=== PATIENT | female | born 1955 | race Caucasian/White ===

== ENCOUNTER → 2019-01-25 12:32 | Outpatient (CLI) | payer BC, SELFPAY ==
--- NOTE | 2019-01-25 12:49 | XR_ITS ---
EXAM: XR cervical spine 3V HISTORY: ITS.REASON: CERVICALGIE, FOR LEAD PLACEMENT ID PRIOR TO BATTERY CHANGE ORDERING PHYSICIAN: Referral Provider, PATIENT AGE: 63 years COMPARISON: None FINDINGS: The tip of the spinal cord stimulator device is projected over the posterior aspect of the vertebral canal at the C6 level. Also noted is orthopedic hardware involving the medial right clavicle. There are calcific densities in the mid neck area bilaterally. Alignment, bone density and vertebral body heights are normal. There is moderate loss of disc space height with small interspersed at C5-6 and C6-7. Posterior elements are intact and there is no prevertebral soft tissue prominence. Impression: No acute process. C5-6 and C6-7 chronic degenerative disc disease. Calcified plaques at the carotid bifurcation area bilaterally. Spinal cord stimulator as described above and evidence of surgery of the medial right clavicle.
== END ==
DX: M54.2 Cervicalgia (principal)
CPT/HCPCS: 72040

== ENCOUNTER 2019-10-15 13:35 | Observation (INO) | payer BC, SELFPAY ==
[2019-10-15] VITALS (23 sets, daily range): BP systolic 132–184; BP diastolic 61–113; PULSE 78–112; RESP 16–20; TEMP 36.4–36.9; O2SAT 92–100; BMI 34.4; BMI 35.1
--- NOTE | 2019-10-15 | IR_ITS ---
APPROVED REPORT Patient Location: [facility] Labourer: ABDIRAHMAN Cross RT (R) PROCEDURES Left heart catheterization Left ventriculogram Selective coronary angiogram Drug-eluting stent deployment to the proximal LAD INDICATION Acute coronary syndrome/unstable angina, Coronary artery disease Informed consent was obtained prior to the procedure. COMPLICATIONS none Estimated Blood Loss: less than 10 mls TECHNIQUE One percent lidocaine used to anesthetize the right anterior aspect of the wrist. The right radial artery was accessed via the Seldinger technique. A 6 Cameroonian sheath was placed in the right radial artery. 2.5 mg of verapamil, 800 mcg of nitroglycerin, 1mg Lidocaine and 5000 U Heparin were given through the arterial sheath. The trap catheter and 6 Cameroonian JL 3 guide catheter were used to perform left heart catheterization left ventriculogram and selective coronary angiogram. At the end of the diagnostic angiogram the JL 3 guide catheter was left in the left main artery and additional heparin was given given producing a therapeutic ACT. A BMW wire was used to traverse the stenosis in the LAD and a 3 mm x 30 mm resolute emiliano stent was deployed at 30 blayne reducing the severe stenosis to 0%. ROBERTO-3 flow was present before and after the procedure. After achieving excellent angiographic results the apparatus was removed the sheath was removed and hemostasis was achieved using TR banding patient was transferred to the postop holding in stable condition ANGIOGRAPHIC RESULTS The left main artery Normal The left anterior descending artery As proximal concentric 30% stenosis followed by an additional 70% stenosis. The remaining LAD is normal The circumflex artery Nondominant normal The right coronary artery Is a dominant vessel has proximal and mid vessel smooth 10% stenoses The JUAN ventriculogram reveals Normal 60% The left ventricular end-diastolic pressure 20 to 25 mmHg IMPRESSION Severe proximal LAD disease Preserved ejection fraction Mild to moderately elevated LVEDP consistent with diastolic dysfunction PLAN 1. Brilinta 90 twice daily plus aspirin 81 mg daily 2. Avoidance of tobacco products 3. Risk factor modification 4. LDL less than 55 5. Cardiac rehabilitation Electronically signed by : Taiwo Rose, 10/15/2019 16:02:24
--- NOTE | 2019-10-15 13:43 | HMH.EDGENADL ---
ED Disposition Clinical Impression: Unstable angina pectoris, Hyperglycemia Disposition: Still a Patient Condition on Discharge: Fair - Critical Care Critical Care Time: No Attestation: On 10/15/19, the high probability of a clinically significant, sudden or life threatening deterioration of the following system(s) required my full and direct attention, intervention and personal management. The time I documented below is in addition to time spent performing reported procedures but includes the following listed in this critical care notation. Medical Decision Making - Jostin Inquiry Pt receiving controlled substance: No Vital Signs: 10/15/19 13:37 10/15/19 13:47 10/15/19 15:08 Temperature 98.5 F 98.2 F Temperature Source Oral Pulse Rate 112 H 100 H Pulse Rate [Right Brachial] 112 H Respiratory Rate 16 20 Blood Pressure 145/87 H Blood Pressure [Right Arm] 184/100 H Blood Pressure Mean [Right Arm] 128 Blood Pressure Source [Right Arm] Automatic Cuff Blood Pressure Position [Right Arm] Sitting 02 Sat by Pulse Oximetry 97 Oxygen Delivery Method Room Air - Lab Data Lab Results 10/15/19 13:50: WBC 6.8, RBC 5.45 H, Hgb 15.2, Hct 46.0, MCV 84.4, MCH 27.8, MCHC 33.0, RDW 13.1, Plt Count 354, MPV 7.0 L, Neut % (Auto) 63.6, Lymph % (Auto) 28.7, Victoria % (Auto) 4.7, Eos % (Auto) 1.7, Baso % (Auto) 1.3, Neut # (Auto) 4.3, Lymph # (Auto) 2.0, Victoria # (Auto) 0.3, Eos # (Auto) 0.1, Baso # (Auto) 0.1 10/15/19 13:50: Sodium 135 L, Potassium 4.4, Chloride 98, Carbon Dioxide 25, Anion Gap 16.4 H, BUN 22 H, Creatinine 0.90, Estimated Creat Clear 90, Estimated GFR 63, Est GFR ( Amer) 76, Glucose 465 H*, Calcium 9.8, Total Bilirubin 0.6, AST 47 H, ALT 57, Alkaline Phosphatase 139 H, Troponin I < 0.01, Total Protein 7.8, Albumin 4.4, Globulin 3.4 H, Albumin/Globulin Ratio 1.3 10/15/19 13:55: Triglycerides 379 H, Cholesterol 181, LDL Cholesterol Direct 93.26 L, VLDL Cholesterol 76 H, HDL Cholesterol 53, Cholesterol/HDL Ratio 3.4 Result diagrams: 10/15/19 13:50 10/15/19 13:50 Orders (Tests/Meds): ED MEDICATIONS Generic Name Dose Route Start Last Admin Trade Name Freq PRN Reason Stop Dose Admin Hydrocodone Bitart/Acetaminophen 1 tab 10/15/19 16:56 [place] 5/325mg Tablet PO 11/14/19 16:20 Q4HP PRN Moderate Pain Hydrocodone Bitart/Acetaminophen 2 tab 10/15/19 16:56 [place] 5/325mg Tablet PO 11/14/19 16:20 Q4HP PRN Moderate to Severe Pain Aspirin 81 mg 10/16/19 09:00 Aspirin 81mg Enteric Coated Tablet PO 11/15/19 08:59 DAILY NANCY Clonidine HCl 0.1 mg 10/15/19 16:56 Clonidine 0.1mg Tablet PO 11/14/19 16:20 TIDP PRN Blood Pressure - High Insulin Human Lispro 0 unit 10/15/19 16:56 10/15/19 17:30 Humalog 100 Units/Ml 3ml Vial (Ssi) SQ 11/14/19 16:55 7 unit ACHS [facility] Administration Protocol Irbesartan 75 mg 10/15/19 18:27 10/15/19 18:46 Avapro 75mg Tablet PO 10/15/19 18:28 75 mg ONCE ONE Administration Miscellaneous 1 each 10/15/19 16:56 Consider Dual Antiplatelet Therapy For Stent * 11/14/19 16:20 NEEDED PRN Reminder for s/p stent Miscellaneous 0 each 10/15/19 16:56 Pharmacy Consult Request NOTAPPLIC 10/15/19 16:57 ONCE ONE Nitroglycerin 0.4 mg 10/15/19 16:56 Nitrostat 0.4mg Sl Tablet SL 11/14/19 16:20 Q5MINP PRN Chest Pain Non-Formulary Medication 1 each 10/16/19 09:00 Pt's Own Medication PO 11/15/19 08:59 DAILY [facility] Ondansetron HCl 4 mg 10/15/19 16:56 Zofran 4mg/2ml Vial IV 11/14/19 16:20 Q6HP PRN Nausea Temazepam 15 mg 10/15/19 16:56 Restoril 15mg Capsule PO 11/14/19 16:20 HSP PRN Insomnia Ticagrelor 90 mg 10/16/19 09:00 Brilinta 90mg Tablet PO 11/15/19 08:59 BID NANCY Discontinued Medications Generic Name Dose Route Start Last Admin Trade Name Freq PRN Reason Stop Dose Admin Hydrocodone Bitart/Acetaminop
--- NOTE | 2019-10-15 13:44 | XR_ITS ---
PROCEDURE: XR CHEST 2V CLINICAL HISTORY: chest pain COMPARISON: No exams were available for comparison FINDINGS: Borderline cardiomegaly without failure. The lungs are clear without infiltrates, suspicious nodules, or pleural effusions. There is a bone plate over the medial aspect of the right clavicle. Degenerative changes are present in the thoracic spine. Epidural stimulator device noted over lower thoracic IMPRESSION: No acute findings. Dictated by: Edu Randolph MD 10/15/2019 15:19 Electronically signed by Edu Randolph MD in [place] 10/15/2019 15:19
[2019-10-15 13:54] LABS: Chloride 98 mmol/L (98-107)
[2019-10-15 13:55] LABS: Potassium 4.4 mmoL/L (3.5-5.1); Sodium 135 mmol/L (136-145)
[2019-10-15 13:57] LABS: Alanine Aminotransferase 57 U/L (12-78); Aspartate Amino Transferase 47 U/L (14-36); Blood Urea Nitrogen 22 mg/dl (7-17); Creatinine Clearance Estimated 90 mL/min (50-200); Estimated Glomerular Filt Rate 63 ml/min (>60); GFR (African American) 76 ML/MIN (>60)
[2019-10-15 13:58] LABS: Albumin Level 4.4 g/dl (3.5-5.0); Albumin/Globulin Ratio 1.3 (1.1-1.8); Alkaline Phosphatase 139 U/L (38-126); Anion Gap 16.4 mEq/L (5-15); Bilirubin,Total 0.6 mg/dl (0.2-1.3); Calcium 9.8 mg/dl (8.4-10.2); Carbon Dioxide 25 mmol/L (22.0-30.0); Globulin 3.4 g/dL (1.3-3.2); Total Protein,Serum 7.8 g/dl (6.3-8.2)
[2019-10-15 14:00] LABS: Glucose 465 mg/dl (74-100)
[2019-10-15 14:12] LABS: Troponin I < 0.01 ng/ml (0.00-0.034)
--- NOTE | 2019-10-15 14:15 | PC.NURSE ---
called for update on pt, updated on and educated him that no visitors were aloud at this time, is very unhappy and rude with registration staff over visiting rule, house notified. Took pt her phone per request of the
[2019-10-15 14:16] LABS: Basophils # 0.1 K/mm3 (0-0.2); Basophils % 1.3 % (0.1-2.0); Eosinophils # 0.1 K/mm3 (0.0-0.4); Eosinophils % 1.7 % (0.1-12.0); Hemoglobin 15.2 g/dL (12.2-16.2); Lymphocytes % 28.7 % (10-50); Mean Corpuscular Hemoglobin 27.8 pg (27.0-31.2); Mean Corpuscular Volume 84.4 fl (81-99); Monocytes # 0.3 K/mm3 (0.1-1.0); Monocytes % 4.7 % (1.7-9.3); Neutrophils # 4.3 K/mm3 (1.8-7.8); Neutrophils % 63.6 % (37.0-80.0); Platelet Count 354 K/mm3 (142-424); Red Blood Count 5.45 M/mm3 (4.20-5.40); Red Cell Distribution Width 13.1 % (11.5-17.5); White Blood Count 6.8 K/mm3 (4.8-10.8)
--- NOTE | 2019-10-15 14:25 | PC.NURSE ---
SPEAKING TO AILYN FROM CARDIOLOGY CLINIC
--- NOTE | 2019-10-15 14:37 | PC.NURSE ---
AILYN FROM CARDIOLOGY HERE TO SEE PT
--- NOTE | 2019-10-15 14:47 | PC.NURSE ---
AILYN ADVISES THAT DR LISA WANTS TO TAKE PT TO [facility]PRESENTATIVE AT THIS TIME. AWARE.
--- NOTE | 2019-10-15 14:52 | HMH.CNCARD ---
History of Present Illness Consult date: 10/15/19 Requesting physician: Edilberto Paulino Consult reason: chest pain Chief complaint: Chest Pain Additional Medical History:: 1. Diabetes 2. Hypertension 3. Former smoker 4. Family history of ischemic heart disease 5. Hyperlipidemia, on Crestor History of present illness: This is a 64-year-old white female who presented to the emergency department with complaints of chest pain. She states that her chest pain started approximately 3 weeks ago. She states episodes of her chest pain are lasting anywhere from 30 minutes to 2 hours. She describes this as a sharp, tight sensation in the center of her chest that radiates through to her back and under her bilateral shoulder blades. She states that her episode this morning started around 1030 and did persist until she got here to the emergency department. She states that nitroglycerin did help improve her pain but it did not completely resolve and now her pain is worsening again. At its worst her chest pain is a 10 out of 10 in intensity. The patient states that she had an appointment in [place] with a contracts attorney tomorrow but her pain was so severe today that she thought that she might and not make it to that appointment and decided to come into the emergency department. The patient states that her chest pain is associated with nausea, diaphoresis and shortness of breath. She states that her symptoms are worse at night. The patient states that she has had no vomiting. She states that her blood sugars have not been being checked at home. She is a qnq-oyvelfe-qdizygvjm diabetic. Here at the hospital her blood sugar is over 400. The patient does have a significant family history of ischemic heart disease. She states that her father and both of her brothers have had multiple MIs and coronary artery disease with stenting. She has a brother who had quadruple coronary artery bypass grafting. She is a former smoker who quit smoking in 2003. She has hypertension and diabetes. She states that she does not have hyperlipidemia but she is on Crestor. During my examination the patient does appear to be in pain and states that she does not feel well. Her chest pain is returning and beginning to be severe again. [facility] History I have reviewed the patient's past medical history: Yes Medical History: Reports:: Diabetes Mellitus Type 1, Hyperlipidemia, Hypertension Denies:: Cancer, Diabetes Mellitus Type 2, Internal Pacemaker, MRSA *Have you ever received a pneumonia vaccine?: No *Have you received a flu vaccine this season?: Yes Other Surgeries: No: Pacemaker Amputation: No - *Social History Smoking Status: Former smoker Smoking End Date: 2003 Alcohol Intake: never *Occupational Status:: unemployed *Travel in the last 8 weeks: None Family Hx:: Coronary Artery Disease, Heart Attack, Hyperlipidemia, Hypertension Meds Allergies Allergy/AdvReac Type Severity Reaction Status Date / Time No Known Allergies Allergy Verified 10/15/19 13:43 Review of Systems - Review of Systems Review of systems:: pertinent systems reviewed and negative unless documented below - Constitutional Reports fatigue - *Cardiovascular Reports chest pain, Reports chest pain at rest, Reports chest pain with activity, Reports shortness of breath, Reports shortness of breath with activity - *Respiratory Reports shortness of breath, Reports shortness of breath with activity - *Gastrointestinal Reports nausea Exam Vital signs and Labs for Last 24 Hours: Temp Pulse Resp BP Pulse Ox 98.5 F 112 H 16 132/82 H 97 10/15/19 13:37 10/15/19 13:47 10/15/19 13:37 10/15/19 14:50 10/15/19 13:37 Laboratory Results - last 24 hr 10/15/19 13:50: WBC 6.8, RBC 5.45 H, Hgb 15.2, Hct 46.0, MCV 84.4, MCH 27.8, MCHC 33.0, RDW 13.1, Plt Count 354, MPV 7.0 L, Neut % (Auto) 63.6, Lymph % (Auto) 28.7, Howell % (Auto) 4.7, Eos % (Auto) 1.7, Baso % (Auto) 1.3, Neut # (Auto) 4
--- NOTE | 2019-10-15 15:08 | PC.NURSE ---
PT TRANSPORTED TO [facility] AT THIS TIME
--- NOTE | 2019-10-15 15:14 | CA_ITS ---
APPROVED REPORT EXAM: Comprehensive 2D, Doppler, and color-flow Echocardiogram Terrazzo Tile Maker: Delmis Enriquez RT(R) Ht: 5 ft 7 in Wt: 220lbs BSA: 2.11 BP: 132/82 mmHg Indications: CP, ex smoker quit 2003, HTN, DM, hyperlipidemia, family history of HD, ABN EKG, cardiac cath today with stent placed 2D Dimensions LVOT 1.73 cm (M/F) 1.5-2.5 M-Mode Dimensions RVDd 2.15 cm (0.9-2.6) LVDd 3.61 cm (3.5-5.7) LVDs 2.97 cm (3.5-5.7) IVSd 0.68 cm (0.6-1.1) PWd 0.61 cm (0.6-1.1) EF (Teich) 37.60% FS 17.70% EDV (Teich) 54.80 mL ESV (Teich) 34.20 mL LV Diastology E/A Ratio 0.67 Mitral Valve MV A Velocity 62.00 (40-130 cm/s) Left Ventricle Left atrium is mildly enlarged, left ventricle is normal size, mild concentric left ventricular hypertrophy, visually estimated ejection fraction 55% with no regional wall motion abnormality. Grade 1 diastolic dysfunction seen without tissue Doppler evidence of raise left atrial pressure. Right Ventricle Right atrium and right ventricular normal size and contractility. Aortic Valve Aortic valve is minimally thickened and fibrosed, there is no aortic stenosis or aortic insufficiency. Mitral Valve Mitral valve is grossly normal, there is mild mitral regurgitation. Tricuspid Valve Tricuspid valve is grossly normal, there is mild tricuspid regurgitation. Pulmonic Valve Pulmonic valve is poorly visualized. Great Vessels Aortic root is normal size. Pericardium No significant pericardial effusion noted. Conclusion 1. Mildly enlarged left atrium, normal left ventricular size, mild concentric left ventricular hypertrophy, visually estimated ejection fraction 55% with no regional wall motion abnormality, grade 1 diastolic dysfunction seen without tissue Doppler evidence of raise left atrial pressure. 2. Mild mitral and tricuspid regurgitation. 3. No significant pericardial effusion noted. Electronically signed by : Bubba Newberry, 10/15/2019 17:38:53
[2019-10-15 15:28] LABS: Chol/HDL Ratio 3.4 (1-3.5); Cholesterol 181 mg/dl (140-200); HDL Cholesterol 53 mg/dl (40-60); Triglycerides 379 mg/dl (30-150); VLDL Cholesterol 76 mg/dL (0-40)
[2019-10-15 15:39] LABS: Direct LDL Cholesterol 93.26 mg/dL (100-129)
--- NOTE | 2019-10-15 16:30 | ECG_ITS ---
APPROVED REPORT Exam: Resting ECG HR:110 bpm ECG Measurements Heart Rate 110 AXES NE 146 P 44 QRSd 78 QRS 51 QT 312 T 21 QTc 422 <Conclusion> Sinus tachycardia Nonspecific T wave abnormality Abnormal ECG Electronically signed by : Manolo Yang, 10/16/2019 06:29:36
--- NOTE | 2019-10-15 18:32 | HMH.HP ---
*Admission Date: 10/15/19 *Chief complaint: unstable angina *History of present illness: Ms. Brown is a pleasant 64-year-old female who presented to the ER this afternoon due to unstable angina. She reports previously seeing internal medicine at where she has been managed for diabetes, hypertension, and chronic pain. Presentation to the ER today was prompted by persistent progressive anginal type pain in her chest that radiated to her back that is been occurring for the past 3 weeks ago. History obtained from patient, complete history as follows however obtained from cardiology documentation prior to patient's heart cath today. She states episodes of her chest pain are lasting anywhere from 30 minutes to 2 hours. She describes this as a sharp, tight sensation in the center of her chest that radiates through to her back and under her bilateral shoulder blades. She states that her episode this morning started around 1030 and did persist until she got here to the emergency department. She states that nitroglycerin did help improve her pain but it did not completely resolve and now her pain is worsening again. At its worst her chest pain is a 10 out of 10 in intensity. The patient states that she had an appointment in [place] with a needle straightener tomorrow but her pain was so severe today that she thought that she might and not make it to that appointment and decided to come into the emergency department. The patient states that her chest pain is associated with nausea, diaphoresis and shortness of breath. She states that her symptoms are worse at night. The patient states that she has had no vomiting. She states that her blood sugars have not been being checked at home. She is a aym-eqcudiu-tqxheumzs diabetic. Here at the hospital her blood sugar is over 400. The patient does have a significant family history of ischemic heart disease. She states that her father and both of her brothers have had multiple MIs and coronary artery disease with stenting. She has a brother who had quadruple coronary artery bypass grafting. She is a former smoker who quit smoking in 2003. She has hypertension and diabetes. She states that she does not have hyperlipidemia but she is on Crestor. During my examination the patient does appear to be in pain and states that she does not feel well. Her chest pain is returning and beginning to be severe again. [facility] History I have reviewed the patient's past medical history: Yes Medical History: Reports:: Diabetes Mellitus Type 2, Hyperlipidemia, Hypertension Denies:: Cancer, Diabetes Mellitus Type 1, Internal Pacemaker, MRSA *Have you ever received a pneumonia vaccine?: Yes *Have you received a flu vaccine this season?: Yes Other Medical History: Reports: Cataracts Laterality Cases: Left: Arthroscopy Hip Other Surgeries: No: Pacemaker Amputation: No - *Social History Educational Level: Completed College Smoking Status: Never smoker Smoking End Date: 2003 Alcohol Intake: never *Occupational Status:: employed Housing: apartment Household Members: spouse *Travel in the last 8 weeks: None Family Hx:: Coronary Artery Disease, Heart Attack, Hyperlipidemia, Hypertension Review of Systems - Review of Systems Review of systems:: pertinent systems reviewed and negative unless documented below (14 point review of systems performed, pertinent positives and negatives as per HPI) Meds Allergies Allergy/AdvReac Type Severity Reaction Status Date / Time No Known Allergies Allergy Verified 10/15/19 13:43 Exam Vital signs and Labs for Last 24 Hours: Temp Pulse Resp BP Pulse Ox 97.6 F 96 H 18 177/113 H 100 10/15/19 18:26 10/15/19 18:26 10/15/19 18:26 10/15/19 18:26 10/15/19 18:26 Laboratory Results - last 24 hr 10/15/19 13:50: WBC 6.8, RBC 5.45 H, Hgb 15.2, Hct 46.0, MCV 84.4, MCH 27.8, MCHC 33.0, RDW 13.1, Plt Count 354, MPV 7.0 L, Neut % (Auto) 63.6, Lymph % (Auto) 28.7, Morris % (Auto) 4.7
[2019-10-15 18:40] LABS: POC Glucose,Bedside 201 (70-110)
[2019-10-15 20:59] LABS: POC Glucose,Bedside 165 (70-110)
--- NOTE | 2019-10-15 22:01 | PC.NURSE ---
She has taken PRN medication for pain in her neck. She has reported pain in her chest with movement. She rates the pain 10/10 but states it only occurs with movement. She received PRN nitro x1. Her blood pressure remained elevated and has since received a PRN dose of clonidine. Denies SOA. Reports her last BM was on 10/14/19. Lung sounds CTA. Normal bowel sounds. Unmeasured void x1 with a hat now in place for measurement. Her home medications are in her drawer.
[2019-10-16] VITALS (8 sets, daily range): BP systolic 125–138; BP diastolic 80–96; PULSE 98–107; TEMP 36.4–36.7; O2SAT 94–100; BMI 35.8
--- NOTE | 2019-10-16 04:11 | PC.NURSE ---
She reported pain during auscultation of her lung sounds and was unable to turn so that her posterior lung sounds could be auscultated. Remains in sinus rhythm except that she become tachy when moans out with pain. call center nurse MD was paged and she received one dose of PRN morphine. She then rested in bed on her telephone. Later she moaned out in pain when rolling to her right side. Telemetry unchanged. During the shift she did receive clonidine x1 for her elevated BP that is now 124/60.
[2019-10-16 05:50] LABS: POC Glucose,Bedside 269 (70-110)
[2019-10-16 06:25] LABS: Basophils # 0.1 K/mm3 (0-0.2); Basophils % 1.7 % (0.1-2.0); Eosinophils # 0.1 K/mm3 (0.0-0.4); Eosinophils % 1.9 % (0.1-12.0); Hemoglobin 14.7 g/dL (12.2-16.2); Lymphocytes # 1.6 K/mm3 (0.7-4.5); Lymphocytes % 24.4 % (10-50); Mean Corpuscular Hemoglobin 27.1 pg (27.0-31.2); Mean Corpuscular Volume 84.6 fl (81-99); Mean Platelet Volume 7.5 fl (7.4-10.4); Monocytes # 0.3 K/mm3 (0.1-1.0); Monocytes % 4.8 % (1.7-9.3); Neutrophils # 4.5 K/mm3 (1.8-7.8); Neutrophils % 67.2 % (37.0-80.0); Platelet Count 282 K/mm3 (142-424); Red Blood Count 5.43 M/mm3 (4.20-5.40); Red Cell Distribution Width 13.2 % (11.5-17.5); White Blood Count 6.6 K/mm3 (4.8-10.8)
--- NOTE | 2019-10-16 06:29 | PC.NURSE ---
She reports that she does not feel well. States that she just hurts all over like the flu. She is afebrile. PRN oxycodone given for neck pain.
[2019-10-16 06:33] LABS: Chloride 101 mmol/L (98-107); Potassium 4.4 mmoL/L (3.5-5.1); Sodium 137 mmol/L (136-145)
[2019-10-16 06:36] LABS: Alanine Aminotransferase 51 U/L (12-78); Albumin/Globulin Ratio 1.3 (1.1-1.8); Alkaline Phosphatase 114 U/L (38-126); Anion Gap 12.4 mEq/L (5-15); Aspartate Amino Transferase 52 U/L (14-36); Bilirubin,Total 0.5 mg/dl (0.2-1.3); Blood Urea Nitrogen 19 mg/dl (7-17); Carbon Dioxide 28 mmol/L (22.0-30.0); Creatinine Clearance Estimated 93 mL/min (50-200); Estimated Glomerular Filt Rate 63 ml/min (>60); GFR (African American) 76 ML/MIN (>60)
[2019-10-16 06:37] LABS: Calcium 9.5 mg/dl (8.4-10.2); Glucose 290 mg/dl (74-100)
--- NOTE | 2019-10-16 07:42 | HMH.PHAVTE ---
[facility] Pharmacy VTE Monitoring - Patient Demographics Admission date: 10/16/19 Report Date: 10/16/19 Time: 07:42 Allergies/Adverse Reactions: Patient Allergies No Known Allergies Allergy (Verified 10/15/19 20:32) Height: 1.7 m Weight: 103.476 kg Patient Problems: Current Active Problems Unstable angina pectoris (Acute) Hyperglycemia (Acute) Abnormal EKG (Acute) Hypertension (Chronic) Hyperlipidemia (Chronic) Diabetes (Chronic) Family history of ischemic heart disease (Chronic) Class 1 obesity with body mass index (BMI) of 30.0 to 30.9 in adult (Chronic) - VTE Risk Labs: VTE Related Lab Results Hgb 14.7 g/dL (12.2-16.2) 10/16/19 05:44 Hct 46.0 % (37.0-47.0) 10/16/19 05:44 Plt Count 282 K/mm3 (142-424) 10/16/19 05:44 BUN 19 mg/dl (7-17) H 10/16/19 05:44 Creatinine 0.90 mg/dl (0.52-1.04) 10/16/19 05:44 Estimated Creat Clear 93 mL/min (50-200) 10/16/19 05:44 Was VTE Risk Assessment Performed: Yes VTE Score: 2 Clinical Trial Participant: No - Prophylaxis VTE Prophylaxis Ordered?: Yes Types of VTE Prophylaxis: TEDS Knee High
[2019-10-16 08:10] LABS: Hemoglobin A1C 7.8 % (4.0-6.0)
--- NOTE | 2019-10-16 08:16 | HMH.DCSUM ---
General - General Admission date:: 10/15/19 Discharge date: 10/16/19 HPI HPI: Ms. Brown is a pleasant 64-year-old female who presented to the ER this afternoon due to unstable angina. She reports previously seeing internal medicine at where she has been managed for diabetes, hypertension, and chronic pain. Presentation to the ER today was prompted by persistent progressive anginal type pain in her chest that radiated to her back that is been occurring for the past 3 weeks ago. History obtained from patient, complete history as follows however obtained from cardiology documentation prior to patient's heart cath today. She states episodes of her chest pain are lasting anywhere from 30 minutes to 2 hours. She describes this as a sharp, tight sensation in the center of her chest that radiates through to her back and under her bilateral shoulder blades. She states that her episode this morning started around 1030 and did persist until she got here to the emergency department. She states that nitroglycerin did help improve her pain but it did not completely resolve and now her pain is worsening again. At its worst her chest pain is a 10 out of 10 in intensity. The patient states that she had an appointment in [place] with a welfare analyst tomorrow but her pain was so severe today that she thought that she might and not make it to that appointment and decided to come into the emergency department. The patient states that her chest pain is associated with nausea, diaphoresis and shortness of breath. She states that her symptoms are worse at night. The patient states that she has had no vomiting. She states that her blood sugars have not been being checked at home. She is a [id number] diabetic. Here at the hospital her blood sugar is over 400. The patient does have a significant family history of ischemic heart disease. She states that her father and both of her brothers have had multiple MIs and coronary artery disease with stenting. She has a brother who had quadruple coronary artery bypass grafting. She is a former smoker who quit smoking in 2003. She has hypertension and diabetes. She states that she does not have hyperlipidemia but she is on Crestor. During my examination the patient does appear to be in pain and states that she does not feel well. Her chest pain is returning and beginning to be severe again. Hospital Course Hospital Course: Patient was admitted to the hospital. Given her evidence of acute coronary syndrome she was taken to [facility]. Angiographic results are noted below: ANGIOGRAPHIC RESULTS The left main artery Normal The left anterior descending artery As proximal concentric 30% stenosis followed by an additional 70% stenosis. The remaining LAD is normal The circumflex artery Nondominant normal The right coronary artery Is a dominant vessel has proximal and mid vessel smooth 10% stenoses The JUAN ventriculogram reveals Normal 60% The left ventricular end-diastolic pressure 20 to 25 mmHg IMPRESSION Severe proximal LAD disease Preserved ejection fraction Mild to moderately elevated LVEDP consistent with diastolic dysfunction PLAN 1. Brilinta 90 twice daily plus aspirin 81 mg daily 2. Avoidance of tobacco products 3. Risk factor modification 4. LDL less than 55 5. Cardiac rehabilitation Patient did well after the procedure. Tolerated medications well. Blood pressure this morning is acceptable. She feels tired but otherwise feels better with no chest pain. Patient will be discharged home today with the addition of dual antiplatelet therapy as noted. She will continue high intensity statin therapy and we will also add Jardiance to her diabetic regimen given elevated A1c and coronary atherosclerotic disease. She will see cardiology in their offices in the early part of next week and she will follow in our offices as a new patient next week. Objective Vital signs:
--- NOTE | 2019-10-16 09:03 | HMH.PNCARD ---
Subjective Date: 10/16/19 Time: 08:55 Principal diagnosis: CAD s/p stent to LAD Interval history: This is a 64-year-old white female who was admitted to the hospital with chest pain. She underwent left cardiac catheterization yesterday and was found to have severe stenosis to her proximal LAD. The patient did undergo one drug-eluting stent to the proximal LAD. She will be on Brilinta and aspirin for dual antiplatelet therapy. This morning she states that she is feeling much better than she did when she came in. She states that her chest pain has essentially resolved and she may only have a twinge here and there. She states that she still has some diaphoresis but this is much better as well. She denies any shortness of breath or edema. She denies any fever, chills, nausea, vomiting, diarrhea, PND, orthopnea or cough. Her hospital stay has been unremarkable. Exam Vital signs and Labs for Last 24 Hours: Temp Pulse Resp BP Pulse Ox 98.1 F 100 H 17 130/92 H 100 10/16/19 08:42 10/16/19 04:00 10/15/19 23:25 10/16/19 06:31 10/16/19 06:27 Laboratory Results - last 24 hr 10/15/19 13:50: WBC 6.8, RBC 5.45 H, Hgb 15.2, Hct 46.0, MCV 84.4, MCH 27.8, MCHC 33.0, RDW 13.1, Plt Count 354, MPV 7.0 L, Neut % (Auto) 63.6, Lymph % (Auto) 28.7, [place] % (Auto) 4.7, Eos % (Auto) 1.7, Baso % (Auto) 1.3, Neut # (Auto) 4.3, Lymph # (Auto) 2.0, [place] # (Auto) 0.3, Eos # (Auto) 0.1, Baso # (Auto) 0.1 10/15/19 13:50: Sodium 135 L, Potassium 4.4, Chloride 98, Carbon Dioxide 25, Anion Gap 16.4 H, BUN 22 H, Creatinine 0.90, Estimated Creat Clear 90, Estimated GFR 63, Est GFR ( Amer) 76, Glucose 465 H*, Calcium 9.8, Total Bilirubin 0.6, AST 47 H, ALT 57, Alkaline Phosphatase 139 H, Troponin I < 0.01, Total Protein 7.8, Albumin 4.4, Globulin 3.4 H, Albumin/Globulin Ratio 1.3 10/15/19 13:55: Triglycerides 379 H, Cholesterol 181, LDL Cholesterol Direct 93.26 L, VLDL Cholesterol 76 H, HDL Cholesterol 53, Cholesterol/HDL Ratio 3.4 10/15/19 17:27: POC Glucose 201 H 10/15/19 20:48: POC Glucose 165 H 10/16/19 05:42: POC Glucose 269 H 10/16/19 05:44: WBC 6.6, RBC 5.43 H, Hgb 14.7, Hct 46.0, MCV 84.6, MCH 27.1, MCHC 32.0, RDW 13.2, Plt Count 282, MPV 7.5, Neut % (Auto) 67.2, Lymph % (Auto) 24.4, [place] % (Auto) 4.8, Eos % (Auto) 1.9, Baso % (Auto) 1.7, Neut # (Auto) 4.5, Lymph # (Auto) 1.6, [place] # (Auto) 0.3, Eos # (Auto) 0.1, Baso # (Auto) 0.1 10/16/19 05:44: Sodium 137, Potassium 4.4, Chloride 101, Carbon Dioxide 28, Anion Gap 12.4, BUN 19 H, Creatinine 0.90, Estimated Creat Clear 93, Estimated GFR 63, Est GFR ( Amer) 76, Glucose 290 H D, Calcium 9.5, Total Bilirubin 0.5, AST 52 H, ALT 51, Alkaline Phosphatase 114, Total Protein 7.0, Albumin 4.0, Globulin 3.0, Albumin/Globulin Ratio 1.3 10/16/19 05:45: Hemoglobin A1c 7.8 H I & O for Last 24 hours: Intake & Output 10/13/19 10/14/19 10/15/19 10/16/19 23:59 23:59 23:59 23:59 Intake Total 250 / 250 360 / 360 Output Total 200 / 200 Balance 250 / 250 160 / 160 Weight 224 lb 4 oz 228 lb 2 oz Narrative: Telemetry strip shows sinus rhythm with a rate of 100. Echocardiogram shows: 1. Mildly enlarged left atrium, normal left ventricular size, mild concentric left ventricular hypertrophy, visually estimated ejection fraction 55% with no regional wall motion abnormality, grade 1 diastolic dysfunction seen without tissue Doppler evidence of raise left atrial pressure. 2. Mild mitral and tricuspid regurgitation. 3. No significant pericardial effusion noted. LHC shows: Severe proximal LAD disease Preserved ejection fraction Mild to moderately elevated LVEDP consistent with diastolic dysfunction PLAN 1. Brilinta 90 twice daily plus aspirin 81 mg daily 2. Avoidance of tobacco products 3. Risk factor modification 4. LDL less than 55 5. Cardiac rehabilitation - Constitutional no acute distress, obese - *Routine HEENT Exam Head: Present: normocephalic, atraumatic Eye: Present
[2019-10-16 13:23] LABS: CATHL Activated Clotting Time 297 SEC (74-125)
== END 2019-10-16 12:01 | disposition home or self-care (01) ==
LOC: ER 13:38 → CATHLAB 15:05 → 2ND 20:33
PROVIDERS: Internal Medicine; Nurse Practitioner Family; Admitting Provider Internal Medicine Adolescent Medicine; Emergency Provider Emergency Medicine; PCP Internal Medicine; Visit Provider Internal Medicine Adolescent Medicine
DX: I25.110 Atherosclerotic heart disease of native coronary artery with unstable angina pectoris (principal); I11.0 Hypertensive heart disease with heart failure; I50.1 Left ventricular failure, unspecified; E11.65 Type 2 diabetes mellitus with hyperglycemia; E78.5 Hyperlipidemia, unspecified; G89.29 Other chronic pain; Z82.49 Family history of ischemic heart disease and other diseases of the circulatory system; Z87.891 Personal history of nicotine dependence; Z83.438 Family history of other disorder of lipoprotein metabolism and other lipidemia; E66.9 Obesity, unspecified; Z68.35 Body mass index [BMI] 35.0-35.9, adult; Z79.82 Long term (current) use of aspirin; Z79.84 Long term (current) use of oral hypoglycemic drugs; Z79.899 Other long term (current) drug therapy; R94.31 Abnormal electrocardiogram [ECG] [EKG]
CPT/HCPCS: 36415; 71046; 80053; 80061; 82962; 83036; 84484; 85025; 85347; 92928; 93005; 93306; 93458; 96372; 99152; 99153; 99284; C1725; C1760; C1769; C1876; C9600; G0378; J1644; Q9967

== ENCOUNTER → 2019-10-28 10:58 | Outpatient (CLI) | payer BC, SELFPAY ==
[2019-10-28 12:58] LABS: Chloride 95 mmol/L (98-107); Potassium 4.4 mmoL/L (3.5-5.1); Sodium 136 mmol/L (136-145)
[2019-10-28 13:01] LABS: Anion Gap 22.4 mEq/L (5-15); Blood Urea Nitrogen 29 mg/dl (7-17); Calcium 10.1 mg/dl (8.4-10.2); Carbon Dioxide 23 mmol/L (22.0-30.0); Estimated Glomerular Filt Rate 41 ml/min (>60); GFR (African American) 50 ML/MIN (>60); Glucose 297 mg/dl (74-100)
[2019-10-28 13:08] LABS: NT Pro Brain Natriuretic Pep. 30.2 pg/mL (0-125)
== END ==
PROVIDERS: PCP Internal Medicine Adolescent Medicine; Visit Provider Urology
DX: R06.00 Dyspnea, unspecified (principal); R42 Dizziness and giddiness; R55 Syncope and collapse; R94.31 Abnormal electrocardiogram [ECG] [EKG]; E11.69 Type 2 diabetes mellitus with other specified complication; E66.9 Obesity, unspecified; E78.49 Other hyperlipidemia; I10 Essential (primary) hypertension; I25.10 Atherosclerotic heart disease of native coronary artery without angina pectoris; R53.83 Other fatigue; Z68.30 Body mass index [BMI] 30.0-30.9, adult; Z82.49 Family history of ischemic heart disease and other diseases of the circulatory system; Z95.5 Presence of coronary angioplasty implant and graft; E78.5 Hyperlipidemia, unspecified; R94.30 Abnormal result of cardiovascular function study, unspecified
CPT/HCPCS: 36415; 80048; 83880; 93270

== ENCOUNTER → 2020-03-30 16:14 | Outpatient (CLI) | payer BC, SELFPAY ==
[2020-03-30 16:19] LABS: Microscopic, Urine URINE MICROSCOPIC (MICROSCOPIC)
[2020-03-30 19:27] LABS: Appearance,Urine CLEAR (Clear); Bilirubin,Urine Negative (Negative); Blood, Urine Negative (Negative); Color,Urine YELLOW (Yellow); Glucose,Urine (UA) Negative (Negative); Ketones,Urine Negative (Negative); Leukocyte Esterase,Urine Negative (Negative); Nitrate,Urine POSITIVE (Negative); PH,Urine 5.5 (5.0-8.5); Protein,Urine Negative (Negative); Specific Gravity, Urine >= 1.030 (1.005-1.030); Urobilinogen,Urine 0.2 EU/dl (0.2)
[2020-03-30 19:40] LABS: Bacteria,Urine 2+ /lpf; Calcium Oxalate Crystals,Urine 2+ /lpf
== END ==
PROVIDERS: Visit Provider Internal Medicine Adolescent Medicine
DX: N39.41 Urge incontinence (principal)
CPT/HCPCS: 81001; 87086; 87088; 87186

== ENCOUNTER → 2020-06-01 16:03 | Outpatient (CLI) | payer BC, SELFPAY ==
[2020-06-01 17:03] LABS: Chloride 100 mmol/L (98-107); Potassium 4.3 mmoL/L (3.5-5.1); Sodium 134 mmol/L (136-145)
[2020-06-01 17:05] LABS: Alanine Aminotransferase 37 U/L (12-78); Alkaline Phosphatase 136 U/L (38-126); Aspartate Amino Transferase 35 U/L (14-36); Bilirubin,Total 0.8 mg/dl (0.2-1.3); Blood Urea Nitrogen 21 mg/dl (7-17); Estimated Glomerular Filt Rate 56 ml/min (>60); GFR (African American) 68 ML/MIN (>60)
[2020-06-01 17:06] LABS: Albumin Level 4.2 g/dl (3.5-5.0); Albumin/Globulin Ratio 1.4 (1.1-1.8); Anion Gap 10.3 mEq/L (5-15); Calcium 9.3 mg/dl (8.4-10.2); Carbon Dioxide 28 mmol/L (22.0-30.0); Chol/HDL Ratio 2.1 (1-3.5); Cholesterol 117 mg/dl (140-200); Globulin 2.9 g/dL (1.3-3.2); Glucose 159 mg/dl (74-100); HDL Cholesterol 57 mg/dl (40-60); Total Protein,Serum 7.1 g/dl (6.3-8.2); Triglycerides 139 mg/dl (30-150); VLDL Cholesterol 28 mg/dL (0-40)
[2020-06-01 17:17] LABS: Direct LDL Cholesterol 36.99 mg/dL (100-129)
[2020-06-01 19:21] LABS: Hemoglobin A1C 8.2 % (4.0-6.0)
== END ==
PROVIDERS: Visit Provider Internal Medicine Adolescent Medicine
DX: I25.118 Atherosclerotic heart disease of native coronary artery with other forms of angina pectoris (principal); E11.9 Type 2 diabetes mellitus without complications
CPT/HCPCS: 36415; 80053; 80061; 83036

== ENCOUNTER 2020-07-13 22:36 | Observation (INO) | payer MEDICARE, SELFPAY ==
--- NOTE | 2020-07-13 22:27 | ECG_ITS ---
APPROVED REPORT Exam: Resting ECG HR:111 bpm ECG Measurements Heart Rate 111 AXES QRSd 84 QRS 69 QT 476 T 73 QTc 647 Conclusion Accelerated Junctional rhythm Abnormal ECG Electronically signed by : Manolo Yang, 07/16/2020 19:34:12
[2020-07-13 22:37] VITALS: BP 129/87; PULSE 110; RESP 18; TEMP 37.1; O2SAT 97; BMI 33.4
--- NOTE | 2020-07-13 22:49 | XR_ITS ---
PROCEDURE: XR CHEST 2V CLINICAL HISTORY: chest pain COMPARISON: CR XR CHEST 2V from 10/15/[address] ANGIO CHEST from 07/13/2020 FINDINGS: There are low lung volumes. There is elevated left hemidiaphragm with gaseous distension of the underlying colon/stomach with atelectatic changes in the left lower lobe. Atelectasis or infiltrate is present in the right lung base. In the right mid lung there is a rounded area of faint density and may be due to the rounded area of pneumonia or developing nodule. Chest CT may provide further evaluation. There is an epidural stimulator device present. Bone plate is present over the medial aspect of the right clavicle. Normal heart size. IMPRESSION: Low lung volumes with bibasilar atelectasis or infiltrate with nodularity in the right midlung which could be due to an area of rounded infiltrate or developing nodule. Dictated by: Edu Randolph MD 07/14/2020 05:42 Edu Randolhp MD in [place] 07/14/2020 05:42
[2020-07-13 23:00] VITALS: BP 128/81; PULSE 115; RESP 17; O2SAT 93
[2020-07-13 23:01] LABS: Basophils # 0.1 K/mm3 (0-0.2); Basophils % 1.3 % (0.1-2.0); Eosinophils % 0.9 % (0.1-12.0); Hematocrit 42.8 % (37.0-47.0); Lymphocytes # 1.2 K/mm3 (0.7-4.5); Lymphocytes % 25.4 % (10-50); Mean Corpuscular HGB Conc 32.6 g/dL (31.8-35.4); Mean Corpuscular Hemoglobin 27.3 pg (27.0-31.2); Mean Corpuscular Volume 83.7 fl (81-99); Mean Platelet Volume 6.8 fl (7.4-10.4); Monocytes # 0.5 K/mm3 (0.1-1.0); Monocytes % 9.6 % (1.7-9.3); Neutrophils # 2.9 K/mm3 (1.8-7.8); Neutrophils % 62.7 % (37.0-80.0); Platelet Count 283 K/mm3 (142-424); Red Blood Count 5.12 M/mm3 (4.20-5.40); Red Cell Distribution Width 14.7 % (11.5-17.5); White Blood Count 4.7 K/mm3 (4.8-10.8)
[2020-07-13 23:05] LABS: Alanine Aminotransferase 25 U/L (12-78); Albumin Level 4.7 g/dl (3.5-5.0); Alkaline Phosphatase 169 U/L (38-126); Anion Gap 15.9 mEq/L (5-15); Aspartate Amino Transferase 30 U/L (14-36); Bilirubin,Direct 0.4 mg/dl (0.0-0.4); Bilirubin,Indirect 0.2 mg/dL (0.0-0.9); Bilirubin,Total 0.6 mg/dl (0.2-1.3); Bilirubin,Unconjugated 0.2 mg/dL (0.0-1.1); Blood Urea Nitrogen 23 mg/dl (7-17); Calcium 9.8 mg/dl (8.4-10.2); Carbon Dioxide 23 mmol/L (22.0-30.0); Chloride 99 mmol/L (98-107); Creatinine Clearance Estimated 74 mL/min (50-200); Estimated Glomerular Filt Rate 45 ml/min (>60); GFR (African American) 55 ML/MIN (>60); Glucose 262 mg/dl (74-100); Potassium 3.9 mmoL/L (3.5-5.1); Sodium 134 mmol/L (136-145); Total Protein,Serum 8.3 g/dl (6.3-8.2)
[2020-07-13 23:10] LABS: C-Reactive Protein 11.9 mg/L (0-4)
--- NOTE | 2020-07-13 23:22 | HMH.EDCP ---
ED Disposition Clinical Impression: Elevated left ventricular end-diastolic pressure (LVEDP), Obesity (BMI 30.0-34.9) Chest pain Qualifiers: Chest pain type: precordial pain Qualified Code(s): R07.2 - Precordial pain CAD (coronary artery disease) Qualifiers: Coronary Disease-Associated Artery/Lesion type: [place] artery [place] vs. 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 The time I documented below is in addition to time spent performing reported procedures but includes the following listed in this critical care notation. Medical Decision Making - Medical Records Medical records reviewed: Yes: I reviewed the patient's medical records. - Jostin Inquiry Pt receiving controlled substance: No Vital Signs: 07/13/20 22:37 07/13/20 23:00 07/13/20 23:30 Temperature 98.7 F Temperature Source Oral Pulse Rate [Right] 110 H 115 H 96 H Respiratory Rate 18 17 17 Blood Pressure [Right Arm] 129/87 128/81 137/89 Blood Pressure Mean [Right Arm] 101 96 105 Blood Pressure Source [Right Arm] Automatic Cuff Automatic Cuff Blood Pressure Position [Right Arm] Supine Supine 02 Sat by Pulse Oximetry 97 93 L 92 L Oxygen Delivery Method Room Air Room Air Room Air 07/14/20 00:30 07/14/20 01:00 07/14/20 01:30 Temperature Temperature Source Pulse Rate [Right] 105 H 101 H 105 H Respiratory Rate 18 18 15 Blood Pressure [Right Arm] 132/81 115/73 135/78 Blood Pressure Mean [Right Arm] 98 87 97 Blood Pressure Source [Right Arm] Automatic Cuff Automatic Cuff Automatic Cuff Blood Pressure Position [Right Arm] Supine Supine Supine 02 Sat by Pulse Oximetry 96 93 L 93 L Oxygen Delivery Method Room Air Room Air Room Air - Lab Data Lab results reviewed: Yes: I reviewed the patient's lab results. Lab Results 07/13/20 22:45: WBC 4.7 L, RBC 5.12, Hgb 14.0, Hct 42.8, MCV 83.7, MCH 27.3, MCHC 32.6, RDW 14.7, Plt Count 283, MPV 6.8 L, Neut % (Auto) 62.7, Lymph % (Auto) 25.4, [place] % (Auto) 9.6 H, Eos % (Auto) 0.9, Baso % (Auto) 1.3, Neut # (Auto) 2.9, Lymph # (Auto) 1.2, [place] # (Auto) 0.5, Eos # (Auto) 0.0, Baso # (Auto) 0.1 07/13/20 22:45: Sodium 134 L, Potassium 3.9, Chloride 99, Carbon Dioxide 23, Anion Gap 15.9 H, BUN 23 H, Creatinine 1.20 H, Estimated Creat Clear 74, Estimated GFR 45 L, Est GFR ( Amer) 55 L, Glucose 262 H, Calcium 9.8, Total Bilirubin 0.6, Direct Bilirubin 0.4, Conjugated Bilirubin 0.0, Indirect Bilirubin 0.2, Unconjugated Bilirubin 0.2, AST 30, ALT 25, Alkaline Phosphatase 169 H, Troponin I < 0.01, C-Reactive Protein 11.9 H, Total Protein 8.3 H, Albumin 4.7 07/13/20 22:45: SARS-CoV-2 IgG Ab (Rapid) Negative, SARS-CoV-2 IgM Ab (Rapid) Negative 07/13/20 22:45: ESR 11 07/13/20 22:45: Procalcitonin 0.110 07/14/20 01:40: Troponin I < 0.01 Result diagrams: 07/13/20 22:45 07/13/20 22:45 Orders (Tests/Meds): ED MEDICATIONS Generic Name Dose Route Start Last Admin Trade Name Freq PRN Reason Stop Dose Admin Sodium Chloride 1,000 mls @ 999 mls/hr 07/13/20 23:00 07/14/20 00:06 Sod Chlor 0.9% 1000ml Bag IV 07/14/20 00:00 999 mls/hr .Q1H1M NANCY Administration Discontinued Medications Generic Name Dose Rou
[2020-07-13 23:26] LABS: Coronavirus 19 IgG Antibody Negative (Negative); Coronavirus 19 IgM Antibody Negative (Negative); Erythrocyte Sedimentation Rate 11 mm/hr (0-30)
[2020-07-13 23:27] LABS: Troponin I < 0.01 ng/ml (0.00-0.034)
[2020-07-13 23:30] VITALS: BP 137/89; PULSE 96; RESP 17; O2SAT 92
--- NOTE | 2020-07-13 23:37 | CT_ITS ---
PROCEDURE: CT ANGIO CHEST CLINCIAL INDICATION: sob Shortness of breath, chest pain, Covid19 positive COMPARISON: No exams were available for comparison TECHNIQUE: IV Contrast: 70ML Isovue 370 Axial images obtained with sagittal and coronal reformats. All CT scans at the facility use one or more dose reduction, viz: automated exposure control, ma/kV adjustment per patient size (including targeted exams where dose is matched to indication, i.e. head), or iterative reconstruction technique. FINDINGS: HEART AND MEDIASTINAL STRUCTURES: No evidence of aortic aneurysm or dissection. There are coronary artery calcifications and/or stents noted with some calcific plaque within the aortic arch. No evidence of pulmonary embolus. LUNGS AND PLEURAL SPACES: There is a focal area of ground-glass attenuation in the right upper lobe inferiorly and in the lower lobes at the lung bases. No effusions. BONY STRUCTURES: Degenerative changes thoracic spine. UPPER ABDOMEN: There is thickening of the gastroesophageal junction. This is nonspecific and may only be due to nondistention. Neoplasm or esophagitis is also considered in the differential diagnosis. Barium swallow or upper endoscopy may provide further evaluation. Prior cholecystectomy. There is a moderate amount of retained colonic feces within the splenic flexure. ADDITIONAL FINDINGS: There are numerous nodular opacities overlying both breasts which may be better evaluated with mammography and ultrasound. IMPRESSION: 1. No evidence of pulmonary embolus. 2. Nonspecific ground-glass opacities predominantly in the lung bases but also in the right upper lobe which may be related to Covid19 pneumonia. 3. Nonspecific thickening of the GE junction. 4. Numerous nodular opacities of the breasts which may be better evaluated with mammography and ultrasound Dictated by: Edu Randolph MD 07/14/2020 06:09 Edu Randolph MD in [place] 07/14/2020 06:09
[2020-07-14] VITALS (13 sets, daily range): BP systolic 110–138; BP diastolic 63–86; PULSE 80–110; RESP 15–20; TEMP 36.8–37.1; O2SAT 93–99; BMI 36.6
--- NOTE | 2020-07-14 | CA_ITS ---
APPROVED REPORT Exam: Pharmacologic Technologist: Kelsie Britode Ht: 5 ft 8 in Wt: 220 lbs BSA: 2.13 m2 HR: 71 bpm BP: 125/71 mmHg Indications: CHEST PAIN Medical History Medications: ASA,AMLODIPINE,PLAVIX, JARDIANCE, FUROSEMIDE,LOSARTAN,BISOPROLOL Stress Test Details Test: LEXISCAN HR Resting HR: 71 bpm Max Heart Rate (APMHR): 155 bpm Max HR Achieved: 86 bpm Target HR (85% APMHR): 131 bpm % of APMHR: 55 Recovery HR: 77 bpm BP Resting BP: 125.0/71.0 mmHg Max BP: 125.0/71.0 mmHg Recovery BP: 117.0/72.0 mmHg ECG Resting ECG: Normal sinus rhythm Clinical Exercise duration: 04:01 min Highest Stage Achieved: Exercise capacity: 1.0 METs Stress ECG Conclusion Symptoms: None Arrhythmias/Ectopy: None ST-T Changes: No significant changes. Conclusion: Unremarkable Lexiscan stress. Myoview images reported separately. Test Summary REST . . . . . . . Resting REST 01:26 . . 71 . 125/ 71 . . Stage 1 01:00 . . 76 . . . . Stage 2 01:00 . . 80 . 123/ 60 . . Stage 3 01:00 . . 80 . 111/ 60 . . Stage 4 01:00 . . 79 . 102/ 60 . . Stage 4 01:01 . . 78 . 102/ 60 . Stop exercise at 04:01 RECOVERY 01:00 . . 78 . . . . RECOVERY 02:00 . . 78 . 122/ 69 . . RECOVERY 03:00 . . 77 . 122/ 69 . . RECOVERY 03:25 . . 77 . 117/ 72 . . Electronically signed by : Bubba Newberry, 07/15/2020 06:18:33
--- NOTE | 2020-07-14 02:11 | PC.NURSE ---
speaking to dr. robles at this time
[2020-07-14 02:12] LABS: Troponin I < 0.01 ng/ml (0.00-0.034)
--- NOTE | 2020-07-14 03:43 | PC.NURSE ---
PT ARRIVED TO THE FLOOR VIA WC FROM ED AT [id number]
[2020-07-14 05:45] LABS: POC Glucose,Bedside 201 (70-110)
[2020-07-14 06:31] LABS: Anion Gap 10.8 mEq/L (5-15); Blood Urea Nitrogen 20 mg/dl (7-17); Carbon Dioxide 26 mmol/L (22.0-30.0); Chloride 102 mmol/L (98-107); Creatinine Clearance Estimated 97 mL/min (50-200); Estimated Glomerular Filt Rate 63 ml/min (>60); GFR (African American) 76 ML/MIN (>60); Glucose 230 mg/dl (74-100); Magnesium 1.8 mg/dl (1.6-2.3); Potassium 3.8 mmoL/L (3.5-5.1); Sodium 135 mmol/L (136-145)
[2020-07-14 06:52] LABS: Troponin I < 0.01 ng/ml (0.00-0.034)
[2020-07-14 06:53] LABS: Basophils % 0.9 % (0.1-2.0); Eosinophils # 0.1 K/mm3 (0.0-0.4); Eosinophils % 1.2 % (0.1-12.0); Hematocrit 36.4 % (37.0-47.0); Lymphocytes # 1.3 K/mm3 (0.7-4.5); Lymphocytes % 32.1 % (10-50); Mean Corpuscular HGB Conc 33.5 g/dL (31.8-35.4); Mean Corpuscular Volume 83.7 fl (81-99); Mean Platelet Volume 6.6 fl (7.4-10.4); Monocytes # 0.4 K/mm3 (0.1-1.0); Monocytes % 10.1 % (1.7-9.3); Neutrophils # 2.2 K/mm3 (1.8-7.8); Neutrophils % 55.7 % (37.0-80.0); Platelet Count 266 K/mm3 (142-424); Red Blood Count 4.35 M/mm3 (4.20-5.40); White Blood Count 3.9 K/mm3 (4.8-10.8)
[2020-07-14 07:15] LABS: Hemoglobin 12.2 g/dL (12.2-16.2)
--- NOTE | 2020-07-14 07:48 | HMH.PHAVTE ---
[facility] Pharmacy VTE Monitoring - Patient Demographics Admission date: 07/14/20 Report Date: 07/14/20 Time: 07:48 Allergies/Adverse Reactions: Patient Allergies No Known Allergies Allergy (Verified 11/04/19 11:45) Height: 1.73 m Weight: 109.344 kg Patient Problems: Current Active Problems Obesity (BMI 30.0-34.9) (Acute) Chest pain (Chronic) CAD (coronary artery disease) (Chronic) Diabetes (Chronic) Elevated left ventricular end-diastolic pressure (LVEDP) (Acute) - VTE Risk Labs: VTE Related Lab Results Hgb 12.2 g/dL (12.2-16.2) D 07/14/20 05:39 Hct 36.4 % (37.0-47.0) L 07/14/20 05:39 Plt Count 266 K/mm3 (142-424) 07/14/20 05:39 BUN 20 mg/dl (7-17) H 07/14/20 05:39 Creatinine 0.90 mg/dl (0.52-1.04) D 07/14/20 05:39 Estimated Creat Clear 97 mL/min (50-200) 07/14/20 05:39 Was VTE Risk Assessment Performed: Yes VTE Score: 3 VTE Risk Level: Low Risk Clinical Trial Participant: No - Prophylaxis VTE Prophylaxis Ordered?: Yes Types of VTE Prophylaxis: TEDS Knee High
--- NOTE | 2020-07-14 08:00 | CA_ITS ---
APPROVED REPORT EXAM: Comprehensive 2D, Doppler, and color-flow Echocardiogram Entertainer & Comic: Maren Go RCS, RVS Ht: 5 ft 8 in Wt: 220lbs BSA: 2.13 BP: 135/78 mmHg Indications: CAD-STENTS, CP, htn,smoker, s/p COVID-19 Echo Enhancing Agent Comments: Technically difficult exam due to pt movement, coughing. 2D Dimensions LVDs 3.73 cm Left Atrium 4.07 cm LVOT 2.02 cm (M/F) 1.5-2.5 M-Mode Dimensions LA Diam 4.22 cm (1.9-4.0) Ao Diam 3.71 cm (2.0-3.7) LVDs 3.20 cm (3.5-5.7) EPSs 0.98 cm ESV (Teich) 41.00 mL LV Diastology E Decel Time 213.00 (160-240 msec) E/A Ratio 0.71 MED E' 7.90 (< 7 cm/sec) MED A' 10.60 cm/s E'/MED E' Ratio 8.85 (>14) LAT E' 8.50 (<10 cm/sec) LAT A' 11.90 cm/s E/LAT E' Ratio 8.22 (>14) Pulm Vein s 34.00 cm/sec Aortic Valve AO Peak GR. 7.40 mmHg Mitral Valve MV E Max Dylan. 70.00 (40-130 cm/s) MV A Velocity 99.00 (40-130 cm/s) E/A Ratio 0.71 MV Decel. Time 213.00 (160-240 ms) MV PHT 62.00 ms Pulmonary Valve NH End VMAX 171.00 cm/s Tricuspid Valve TR P. Velocity 226.00 cm/s RAP Estimate 10.00 mmHg RVSP 30.50 mmHg Left Ventricle Technically difficult study because of the patient factors and poor acoustic windows. Left atrium is mildly enlarged, left ventricle is normal size, mild concentric left ventricular hypertrophy, visually estimated ejection fraction 55% with no regional wall motion abnormality, endocardial surfaces are poorly visualized, grade 1 diastolic dysfunction seen without tissue Doppler evidence of raise left atrial pressure. Right Ventricle Right atrium and right ventricle are normal size and contractility. Aortic Valve Aortic valve is thickened and calcified leaflet continue to display mobility, there is no aortic stenosis or aortic insufficiency. Mitral Valve Mitral valve is grossly normal, there is mild mitral regurgitation. Tricuspid Valve Tricuspid valve is grossly normal, there is mild tricuspid regurgitation, tricuspid regurgitation jet velocity is inadequate for calculation of the right ventricular systolic pressure. Pulmonic Valve Pulmonic valve is poorly visualized. Great Vessels Aortic root is normal size. Pericardium No significant pericardial effusion noted Conclusion 1. Technically difficult study, mildly enlarged left atrium, normal left ventricular size, mild concentric left ventricular hypertrophy, visually estimated ejection fraction 55% with no regional wall motion abnormality, grade 1 diastolic dysfunction seen without tissue Doppler evidence of raise left atrial pressure. 2. Mild mitral and tricuspid regurgitation. 3. No significant pericardial effusion noted. Electronically signed by : Bubba Newberry, 07/15/2020 05:54:08
--- NOTE | 2020-07-14 08:29 | HMH.HP ---
*Admission Date: 07/14/20 *Chief complaint: Chest pain *History of present illness: Ms. Brown is a 65-year-old female with history of stent placement in October of last year, obesity, hypertension, history of smoking (quit in 2013). She presented to the ER last night after progressive chest pain over the course of the day. States she was at work working at a [employer] when she developed tightness in her back between her shoulder blades that gradually progressed around her chest and felt like a band of pressure. Was similar to the episode she had last year prior to having her 30 mm stent placed in the mid LAD to address a 70% stenosis. She denied shortness of breath, nausea, vomiting, syncope. Of note was diagnosed with COVID-19 on July 01. Per her report has been relatively asymptomatic from her diagnosis. Denies ever feeling short of breath, fatigue, fevers. She was admitted overnight for observation and further management. Echo obtained showing normal ejection fraction on the preliminary read. Troponins have been below detectable level on serial monitoring overnight. This morning she states she is pain-free. Denies significant history of reflux and feels that the pain in her chest is not related to reflux as it was not a burning pain. Reviewed imaging from admission, no PE noted. [facility] History I have reviewed the patient's past medical history: Yes Medical History: Reports:: Coronary Artery Disease, Diabetes Mellitus Type 2, Hyperlipidemia, Hypertension, Myocardial Infarction Denies:: Cancer, Diabetes Mellitus Type 1, Internal Pacemaker, MRSA *Have you ever received a pneumonia vaccine?: Yes *Have you received a flu vaccine this season?: Yes Other Medical History: Reports: Arthritis, Cataracts Laterality Cases: Left: Arthroscopy Hip Other Surgeries: Yes: Cardiac Catheterization, Coronary Stent. No: Pacemaker Amputation: No - *Social History Last grade of school completed: Advanced degree Smoking Status: Former smoker Tobacco Type: cigarettes Smoking End Date: 2003 Alcohol Intake: never Substance Use Type: denies use *Occupational Status:: employed Housing: apartment Household Members: spouse *Travel in the last 8 weeks: None Family Hx:: Coronary Artery Disease, Heart Attack, Hyperlipidemia, Hypertension Review of Systems - Review of Systems Review of systems:: pertinent systems reviewed and negative unless documented below (14 point review of systems performed, pertinent positives and negatives as per HPI) - *Neurologic Denies headache(s), Denies seizure-like activity Meds Home Medications Medication Instructions Recorded Confirmed Type Duloxetine HCl 120 mg PO DAILY 10/15/19 07/14/20 History Magnesium 250 mg PO DAILY 10/15/19 07/14/20 History Melatonin 10 mg PO HS 10/15/19 07/14/20 History Nortriptyline HCl 1 - 2 cap PO HSP PRN 10/15/19 07/14/20 History Oxycodone HCl 5 mg PO Q6HP PRN 10/15/19 07/14/20 History Tizanidine HCl 4 mg PO Q8HP PRN 10/15/19 07/14/20 History Aspirin [Aspirin 81mg EC Tab] 81 mg PO DAILY 10/16/19 07/14/20 History Rosuvastatin Calcium [Crestor 20 20 mg PO HS 10/16/19 07/14/20 History mg Tablets] nitroglycerin 0.4 mg sublingual 0.4 mg SUBLINGUAL Q5M PRN #25 tab 10/16/19 07/14/20 Rx tablet Amlodipine Besylate [Amlodipine 5 mg PO DAILY 07/14/20 07/14/20 History 5mg tab] Clopidogrel Bisulfate [Plavix] 75 mg PO DAILY 07/14/20 07/14/20 History Empagliflozin [Jardiance] 25 mg PO DAILY 07/14/20 07/14/20 History Exenatide Microspheres [Bydureon 2 mg SQ WEEKLY 07/14/20 07/14/20 History Bcise] Furosemide [Furosemide 20mg Tab*] 20 mg PO Q OTHER DAY 07/14/20 07/14/20 History Losartan Potassium [Cozaar 50mg 50 mg PO DAILY 07/14/20 07/14/20 History Tablets] bisoproloL fumarate [Bisoprolol 5 mg PO DAILY 07/14/20 07/14/20 History Fumarate] Allergies Allergy/AdvReac Type Severity Reaction Status Date / Time No Known Allergies Allergy Verified 11/04/19 11:45 Exam V
--- NOTE | 2020-07-14 08:47 | NM_ITS ---
APPROVED REPORT Exam: Nuclear Stress Test Indication: Chest pain, HTN, CAD, DM Patient Location: Inpatient Stress Tech: Kelsie Schroeder [place] Tech:Annemarie SantosringtonABDIRAHMAN RT(R)(N) Ht: 5 ft 8 in Wt: 220 lbs Bra Size: DD HR: 71 bpm BP: 125/71 mmHg BSA: 2.13 m2 BMI: 33.4 History: Chest pain, HTN, CAD, DM Procedure: Patient received a 0.4 mg of intravenous Lexiscan, resting heart rate 71 bpm, resting blood pressure 125/71 mmHg, with Lexiscan maximum heart rate achived was 82 bpm which is % of the maximum predicted heart rate and blood pressure was 123/60 mmHg. With Lexiscan, patient denied any complaint of chest pain. Cardiac Stress and Resting SPECT Images: Cardiac Stress and Resting SPECT images were obtained using technetium 99m Myoview 28.9 mCi stress and 10.41 mCi at rest. EF is 56%. No wall motion abnormalities No fixed or reversible defects Conclusion: Negative exam No ischemic changes with normal EF Electronically signed by : Edu Randolph MD 07/14/2020 15:54:13
--- NOTE | 2020-07-14 08:49 | HMH.CNCARD ---
History of Present Illness Consult date: 07/14/20 Requesting physician: Meño Roger Consult reason: chest pain Chief complaint: chest pain History of present illness: This is a 65-year-old white female who presented to the emergency department with complaints of chest pain. The patient states that while she was at work yesterday at the [employer] she developed chest pain and tightness. She states that she has been having the chest pain and tightness for approximately a year but this has been occurring off and on. She can take a nitroglycerin and her chest pain resolves. However, she states last night while at work while she was exerting herself she began to have pain between her shoulder blades that then radiated into her chest and caused tightness and went up into her neck. She states that she felt like she had a band of pressure around her. She states that this started around 2:30 PM yesterday and continued to persist throughout her entire shift. When she got off work at 10 PM she came to the emergency department because she was still having symptoms. Her chest pressure and tightness was associated with shortness of breath and diaphoresis. She denies any nausea. She states at its worst her pain was a 8 out of 10 in intensity. She states that she did not have improvement in her chest pain and tightness until she came to the emergency department and was given morphine. She was diagnosed with COVID-19 on July 01. She has really been asymptomatic with this until her symptoms yesterday. She denies any fever, chills, nausea, vomiting, diarrhea, PND or orthopnea. Preliminary echocardiogram shows a normal ejection fraction and no significant valvular disease. She has ruled out for an IA. [facility] History I have reviewed the patient's past medical history: Yes Medical History: Reports:: Coronary Artery Disease, Diabetes Mellitus Type 2, Hyperlipidemia, Hypertension, Myocardial Infarction Denies:: Cancer, Diabetes Mellitus Type 1, Internal Pacemaker, MRSA *Have you ever received a pneumonia vaccine?: Yes *Have you received a flu vaccine this season?: Yes Other Medical History: Reports: Arthritis, Cataracts Laterality Cases: Left: Arthroscopy Hip Other Surgeries: Yes: Cardiac Catheterization, Coronary Stent. No: Pacemaker Amputation: No - *Social History Last grade of school completed: Advanced degree Smoking Status: Former smoker Tobacco Type: cigarettes Smoking End Date: 2003 Alcohol Intake: never Substance Use Type: denies use *Occupational Status:: employed Housing: apartment Household Members: spouse *Travel in the last 8 weeks: None Family Hx:: Coronary Artery Disease, Heart Attack, Hyperlipidemia, Hypertension Meds Home Medications Medication Instructions Recorded Confirmed Type Duloxetine HCl 120 mg PO DAILY 10/15/19 07/14/20 History Magnesium 250 mg PO DAILY 10/15/19 07/14/20 History Melatonin 10 mg PO HS 10/15/19 07/14/20 History Nortriptyline HCl 1 - 2 cap PO HSP PRN 10/15/19 07/14/20 History Oxycodone HCl 5 mg PO Q6HP PRN 10/15/19 07/14/20 History Tizanidine HCl 4 mg PO Q8HP PRN 10/15/19 07/14/20 History Aspirin [Aspirin 81mg EC Tab] 81 mg PO DAILY 10/16/19 07/14/20 History Rosuvastatin Calcium [Crestor 20 20 mg PO HS 10/16/19 07/14/20 History mg Tablets] nitroglycerin 0.4 mg sublingual 0.4 mg SUBLINGUAL Q5M PRN #25 tab 10/16/19 07/14/20 Rx tablet Amlodipine Besylate [Amlodipine 5 mg PO DAILY 07/14/20 07/14/20 History 5mg tab] Clopidogrel Bisulfate [Plavix] 75 mg PO DAILY 07/14/20 07/14/20 History Diclofenac Sodium [Diclofenac Sod 1 applicatio TP QID 07/14/20 07/14/20 History 100gm Topical Gel] Empagliflozin [Jardiance] 25 mg PO DAILY 07/14/20 07/14/20 History Exenatide Microspheres [Bydureon 2 mg SQ WEEKLY 07/14/20 07/14/20 History Bcise] Furosemide [Furosemide 20mg Tab*] 20 mg PO Q OTHER DAY 07/14/20 07/14/20 History Losartan Potassium [Cozaar 50mg 50 mg PO DAILY 07/14/20 07/14/20 History Table
--- NOTE | 2020-07-14 09:34 | HMH.PHAINT ---
MEDICATION RECONCILIATION COMPLETED ON PATIENT USING EXTERNAL FILL HISTORY FROM PHARMACY, LIST FROM MD OFFICE, AND LIST FROM CARDIOLOGY OFFICE. -ELIJAH HSIEHD
[2020-07-14 11:33] LABS: Calcium 8.4 mg/dl (8.4-10.2)
[2020-07-14 13:33] LABS: POC Glucose,Bedside 128 (70-110)
--- NOTE | 2020-07-14 13:37 | PC.NURSE ---
pt down to radiology at this time for stress test
--- NOTE | 2020-07-14 14:13 | HMH.DCSUM ---
General - General Admission date:: 07/14/20 Discharge date: 07/14/20 HPI HPI: Ms. Brown is a 65-year-old female with history of stent placement in October of last year, obesity, hypertension, history of smoking (quit in 2013). She presented to the ER last night after progressive chest pain over the course of the day. 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 Was similar to the episode she had last year prior to having her 30 mm stent placed in the mid LAD to address a 70% stenosis. She denied shortness of breath, nausea, vomiting, syncope. Of note was diagnosed with COVID-19 on July 01. Per her report has been relatively asymptomatic from her diagnosis. Denies ever feeling short of breath, fatigue, fevers. She was admitted overnight for observation and further management. Echo obtained showing normal ejection fraction on the preliminary read. Troponins have been below detectable level on serial monitoring overnight. This morning she states she is pain-free. Denies significant history of reflux and feels that the pain in her chest is not related to reflux as it was not a burning pain. Reviewed imaging from admission, no PE noted. Hospital Course Hospital Course: Patient admitted for chest pain. Pain resolved overnight. Serial troponins normal. EKG stable. Cardiology was consulted given suspicious nature of chest pain and its relation to her episode last year. Patient taken for Lexiscan stress test. Result was negative for ischemia. Deemed medically stable for discharge home with close outpatient follow-up. Adjustments to medications per med rec. Patient without shortness of breath, chest pain, nausea, vomiting. Full cardiology recs as follows: 1. Lexiscan Myoview stress test to rule out ischemia: 2. Her preliminary echocardiogram shows normal ejection fraction. 3. Coronary artery disease is present. 4. Her blood pressure is well controlled. 5. LDL goal is less than 55. Her LDL is currently 36.99. She is on a statin. 6. The patient was tachycardic upon arrival to the hospital. She still remains tachycardic with a heart rate around 105 this morning. We will increase her bisoprolol to 10 mg p.o. daily. 7. The patient is diabetic. She does need aggressive control of her diabetes. Will defer the management of this to her primary care provider. 8. Further recommendations were made pending the patient's response to treatment and the results of her Lexiscan Myoview stress test today. Objective Vital signs: Temp Pulse Resp BP Pulse Ox 98.7 F 93 H 18 138/86 98 07/14/20 11:34 07/14/20 11:34 07/14/20 11:34 07/14/20 11:34 07/14/20 11:34 Narrative: - Constitutional no acute distress, obese - *Routine HEENT Exam Head: Present: normocephalic Eye: Present: EOMI, PERRL ENT: Present: mucous membranes moist - *Routine Neck Exam Present: supple. Absent: lymphadenopathy - Routine Chest/Breast/Axilla Exam Chest wall: Absent: tenderness (No significant discomfort on palpation of the chest) - *Routine Respiratory Exam Present: CTA bilaterally - *Routine Cardiovascular Exam Present: RRR. Absent: murmur - *Routine Abdominal Exam Present: soft, normoactive bowel sounds, tenderness (Tenderness in the upper abdomen) - *Routine Extremities Exam Absent: cyanosis, clubbing, edema - *Routine Skin Exam Present: warm. Absent: rash - *Routine Neurological Exam Present: alert, oriented X3 Results Labs on day of discharge: Labs from last 24 hours 07/14/20 07/14/20 07/14/20 13:23 05:39 05:39 WBC RBC Hgb Hct MCV MCH MCHC RDW Plt Count MPV Neut % (Auto) Lymph % (Auto) Kerr % (Auto) Eos % (Auto) Baso % (Auto) Neut # (Auto) Lymph # (Auto) Kerr # (Auto) Eos # (Au
== END 2020-07-14 19:52 | disposition home or self-care (01) ==
LOC: ER 07-14 02:32 → 2ND 07-14 03:52
PROVIDERS: Admitting Provider Internal Medicine Adolescent Medicine; Emergency Provider Emergency Medicine; PCP Internal Medicine Adolescent Medicine; Visit Provider Internal Medicine Adolescent Medicine
DX: I25.110 Atherosclerotic heart disease of native coronary artery with unstable angina pectoris (principal); U07.1 COVID-19; Z95.5 Presence of coronary angioplasty implant and graft; I10 Essential (primary) hypertension; E78.5 Hyperlipidemia, unspecified; E11.9 Type 2 diabetes mellitus without complications; Z79.02 Long term (current) use of antithrombotics/antiplatelets; Z79.82 Long term (current) use of aspirin; Z79.84 Long term (current) use of oral hypoglycemic drugs; Z79.899 Other long term (current) drug therapy
CPT/HCPCS: 36415; 71046; 71275; 78452; 80048; 80076; 82962; 83735; 84145; 84484; 85025; 85651; 86140; 86328; 93005; 93017; 93306; 96365; 96375; 99284; A9502; G0378; J2405; J2785; Q9967; U0003

== ENCOUNTER 2020-07-20 16:33 | Emergency (ER) | payer MEDICARE, SELFPAY ==
[2020-07-20 17:15] VITALS: BP 171/88; PULSE 115; RESP 24; TEMP 37.6; O2SAT 91; BMI 34.9
--- NOTE | 2020-07-20 17:24 | XR_ITS ---
PROCEDURE: XR CHEST PORTABLE CLINICAL HISTORY: cough Former smoker, cough COMPARISON: CR XR CHEST 2V from 10/15/[address] ANGIO CHEST from 07/13/2020 CR XR CHEST 2V from 07/13/2020 FINDINGS: The cardiomediastinal silhouette and pulmonary vascularity are within normal limits. There is diffuse bilateral airspace disease which has worsened compared to the previous exam with some sparing of the lung apices. Bone plate is present along the medial aspect of the right clavicle. Epidural stimulator device noted in the lower thoracic spine. IMPRESSION: Worsening diffuse bilateral airspace disease consistent with worsening bilateral pneumonia Dictated by: Edu Randolph MD 07/20/2020 17:54 Edu Randolph MD in [place] 07/20/2020 17:54
[2020-07-20 17:56] VITALS: BP 141/79; PULSE 112; O2SAT 85
[2020-07-20 18:00] VITALS: BP 142/84; PULSE 112; O2SAT 97
--- NOTE | 2020-07-20 18:21 | PC.NURSE ---
notified RT of ABG order.
--- NOTE | 2020-07-20 18:22 | HMH.EDGENADL ---
ED Disposition Clinical Impression: Pneumonia due to COVID-19 virus Acute bronchitis Qualifiers: Bronchitis organism: other organism Qualified Code(s): J20.8 - Acute bronchitis due to other specified organisms Disposition: Home, Self-Care Condition on Discharge: Good Instructions: DI for COVID-19 (Suspected or Confirmed ) Prescriptions: Codeine Phosphate/Guaifenesin [Guaifenesin-Codeine Syrup] 5 ml PO Q6 #120 liquid Transmission Status: [facility] to [facility] Referrals: Manolo Yang MD [Primary Care Provider] - - Critical Care Critical Care Time: No Attestation: On 07/20/20, the high probability of a clinically significant, sudden or life threatening deterioration of the following system(s) required my full and direct attention, intervention and personal management. The time I documented below is in addition to time spent performing reported procedures but includes the following listed in this critical care notation. Medical Decision Making - Medical Records Medical records reviewed: Yes: I reviewed the patient's medical records. - Jostin Inquiry Pt receiving controlled substance: Yes Jostin was queried for this patient: No Reason not queried -: Jostin login issues Risks and benefits of using a controlled substance: were discussed with pt by me Vital Signs: 07/20/20 17:15 07/20/20 17:56 07/20/20 18:00 Temperature 99.6 F Temperature Source Oral Pulse Rate [Right Radial] 115 H 112 H 112 H Respiratory Rate 24 Blood Pressure [Right Arm] 171/88 H 141/79 H 142/84 H Blood Pressure Mean [Right Arm] 115 99 103 Blood Pressure Source [Right Arm] Automatic Cuff Automatic Cuff Automatic Cuff Blood Pressure Position [Right Arm] Sitting Sitting Sitting 02 Sat by Pulse Oximetry 91 L 85 L 97 Oxygen Delivery Method Room Air Room Air Nasal Cannula Oxygen Flow Rate (LPM) 2 - Lab Data Lab Results 07/20/20 18:04: Specimen Source Left radial, O2 % 3l nc, ABG pH 7.50 H, ABG pCO2 31.3 L, ABG pO2 70.6 L, ABG HCO3 23.6, ABG Total CO2 24.5, ABG O2 Saturation 96, ABG Base Excess 0.3, Edu Test Acceptable 07/20/20 18:13: WBC 6.8, RBC 4.71, Hgb 12.8, Hct 38.9, MCV 82.5, MCH 27.2, MCHC 32.9, RDW 14.5, Plt Count 367, MPV 8.0, Neut % (Auto) 81.9 H, Lymph % (Auto) 11.6, [place] % (Auto) 6.0, Eos % (Auto) 0.1, Baso % (Auto) 0.4, Neut # (Auto) 5.6, Lymph # (Auto) 0.8, [place] # (Auto) 0.4, Eos # (Auto) 0.0, Baso # (Auto) 0.0 07/20/20 18:13: Sodium 133 L, Potassium 4.1, Chloride 95 L, Carbon Dioxide 28, Anion Gap 14.1, BUN 15, Creatinine 0.90, Estimated Creat Clear 92, Estimated GFR 63, Est GFR ( Amer) 76, Glucose 279 H, Calcium 9.5, Total Bilirubin 0.9, AST 33, ALT 22, Alkaline Phosphatase 150 H, Troponin I < 0.01, Total Protein 7.9, Albumin 4.1, Globulin 3.8 H, Albumin/Globulin Ratio 1.1 07/20/20 19:06: Lactate 0.7 Result diagrams: 07/20/20 18:13 07/20/20 18:13 Orders (Tests/Meds): ED MEDICATIONS Generic Name Dose Route Start Last Admin Trade Name Freq PRN Reason Stop Dose Admin Sodium Chloride 1,000 mls @ 999 mls/hr 07/20/20 18:15 07/20/20 18:27 Sod Chlor 0.9% 1000ml Bag IV 07/20/20 19:15 999 mls/hr .Q1H1M NANCY Administration Discontinued Medications Generic Name Dose Route Start Last Admin Trade Name Freq PRN Reason Stop Dose Admin Acetaminophen/Codeine Phosphate 1 each 07/20/20 17:23 07/20/20 18:27 Acetaminophen/Codeine #3 Tab PO 07/20/20 17:24 1 each ONCE ONE Administration Dexamethasone Sodium Phosphate 10 mg 07/20/20 18:50 07/20/20 19:38 Dexamethasone 4mg/Ml 5ml Mdv IV 07/20/20 18:51 10 mg ONCE ONE Administration ORDERS Category Date Time Status Troponin I Q3H Lab 07/20/20 20:30 Ordered Troponin I Q3H Lab 07/20/20 23:30 Ordered Blood Culture Stat Micro 07/20/20 19:08 Received - Radiology Data #1 Image(s): Chest Image Reviewed: Yes I reviewed the patient's radiology results, Yes I discussed the image results w/the radiologist, Yes I have
[2020-07-20 18:23] LABS: Basophils % 0.4 % (0.1-2.0); Eosinophils % 0.1 % (0.1-12.0); Hematocrit 38.9 % (37.0-47.0); Hemoglobin 12.8 g/dL (12.2-16.2); Lymphocytes # 0.8 K/mm3 (0.7-4.5); Lymphocytes % 11.6 % (10-50); Mean Corpuscular HGB Conc 32.9 g/dL (31.8-35.4); Mean Corpuscular Hemoglobin 27.2 pg (27.0-31.2); Mean Corpuscular Volume 82.5 fl (81-99); Monocytes # 0.4 K/mm3 (0.1-1.0); Neutrophils # 5.6 K/mm3 (1.8-7.8); Neutrophils % 81.9 % (37.0-80.0); Platelet Count 367 K/mm3 (142-424); Red Blood Count 4.71 M/mm3 (4.20-5.40); Red Cell Distribution Width 14.5 % (11.5-17.5); White Blood Count 6.8 K/mm3 (4.8-10.8)
[2020-07-20 18:27] LABS: Chloride 95 mmol/L (98-107)
[2020-07-20 18:28] LABS: Potassium 4.1 mmoL/L (3.5-5.1); Sodium 133 mmol/L (136-145)
[2020-07-20 18:30] LABS: Alanine Aminotransferase 22 U/L (12-78); Alkaline Phosphatase 150 U/L (38-126); Aspartate Amino Transferase 33 U/L (14-36); Bilirubin,Total 0.9 mg/dl (0.2-1.3); Blood Urea Nitrogen 15 mg/dl (7-17); Creatinine Clearance Estimated 92 mL/min (50-200); Estimated Glomerular Filt Rate 63 ml/min (>60); GFR (African American) 76 ML/MIN (>60)
[2020-07-20 18:31] LABS: Albumin Level 4.1 g/dl (3.5-5.0); Albumin/Globulin Ratio 1.1 (1.1-1.8); Calcium 9.5 mg/dl (8.4-10.2); Globulin 3.8 g/dL (1.3-3.2); Glucose 279 mg/dl (74-100); Total Protein,Serum 7.9 g/dl (6.3-8.2)
[2020-07-20 18:45] LABS: ABG Base Excess 0.3 mmol/L (-2.4-2.3); ABG HCO3 23.6 mmhg (22.0-26.0); ABG Oxygen Saturation 96 % (90-100); ABG PCO2 31.3 mmhg (35.0-45.0); ABG PO2 70.6 mmhg (80-100); ABG TCO2 24.5 mmhg (23-27); Allen's Test Acceptable; Oxygen 3L NC %; Source Left Radial
--- NOTE | 2020-07-20 19:00 | ECG_ITS ---
APPROVED REPORT Exam: Resting ECG HR:98 bpm ECG Measurements Heart Rate 98 AXES VA 144 P 58 QRSd 80 QRS 51 QT 336 T 37 QTc 428 Conclusion Normal sinus rhythm Normal ECG Electronically signed by : Manolo Yang, 07/21/2020 21:02:11
--- NOTE | 2020-07-20 19:09 | PC.NURSE ---
shift change report given to josuérn
[2020-07-20 19:21] LABS: Anion Gap 14.1 mEq/L (5-15); Carbon Dioxide 28 mmol/L (22.0-30.0)
[2020-07-20 19:29] LABS: Lactic Acid 0.7 mmol/L (0.7-2.1)
[2020-07-20 19:31] LABS: Troponin I < 0.01 ng/ml (0.00-0.034)
[2020-07-20 19:50] VITALS: BP 141/87; PULSE 100; RESP 20; TEMP 37.2; O2SAT 95
== END 2020-07-20 19:53 | disposition home or self-care (01) ==
PROVIDERS: Emergency Provider Emergency Medicine; PCP Internal Medicine Adolescent Medicine
DX: U07.1 COVID-19 (principal); J12.82 Pneumonia due to coronavirus disease 2019; I25.10 Atherosclerotic heart disease of native coronary artery without angina pectoris; E11.9 Type 2 diabetes mellitus without complications; E78.5 Hyperlipidemia, unspecified; I10 Essential (primary) hypertension; I25.2 Old myocardial infarction; Z87.891 Personal history of nicotine dependence; Z79.899 Other long term (current) drug therapy
CPT/HCPCS: 36415; 71045; 80053; 82803; 83605; 84484; 85025; 87040; 93005; 96365; 96375; 99284

== ENCOUNTER 2020-07-23 15:38 | Inpatient (IN) | payer MEDICARE, SELFPAY ==
--- NOTE | 2020-07-23 15:42 | XR_ITS ---
PROCEDURE: XR CHEST PORTABLE CLINICAL HISTORY: admit with cap Cough and fever COMPARISON: CR XR CHEST 2V from 10/15/[address] ANGIO CHEST from 07/13/2020 CR XR CHEST 2V from 07/13/2020 CR XR CHEST PORTABLE from 07/20/2020 FINDINGS: The cardiomediastinal silhouette and pulmonary vascularity are within normal limits. There are low lung volumes. There remains bilateral pneumonia involving the mid and lower lung zones which is shown some improvement compared to the previous exam. Postsurgical changes right clavicle IMPRESSION: Persistent but slightly improved bilateral pneumonia Dictated by: Edu Randolph MD 07/23/2020 17:15 Edu Randolph MD in [place] 07/23/2020 17:15
--- NOTE | 2020-07-23 16:03 | PC.NURSE ---
Pt arrived to the floor at this time.
[2020-07-23 16:13] VITALS: BP 170/80; PULSE 98; RESP 21; TEMP 36.9; O2SAT 91; BMI 33.6
--- NOTE | 2020-07-23 16:55 | HMH.HP ---
*Admission Date: 07/23/20 *Chief complaint: Hypoxia, cough *History of present illness: Patient was diagnosed by rapid antigen test followed by PCR swab at her snf employer-[employer]-and was in quarantine for 10 days starting on July 01. She felt well, but after the 10 day period began to feel poorly and was actually admitted overnight at the [facility] for chest pain syndrome and discharged the following day. Unfortunately, since that time she's felt worse with coughing, shortness of air, dyspnea with exertion and poor p.o. intake. She was in the emergency department on the , sent home after having some IV fluids with cough medication. Presented to my office today, found to be hypoxic with room air saturation 87%, tachycardic with heart rate greater than 100, slightly lower blood pressure than her baseline and admitted to hospital for post viral pneumonitis and dehydration and hypoxia. [facility] History I have reviewed the patient's past medical history: Yes Medical History: Reports:: Coronary Artery Disease, Hyperlipidemia, Hypertension, Myocardial Infarction, Peripheral Artery Disease Denies:: Cancer, Diabetes Mellitus Type 1, Diabetes Mellitus Type 2, Internal Pacemaker, MRSA *Have you ever received a pneumonia vaccine?: Yes *Have you received a flu vaccine this season?: Yes Other Medical History: Reports: Arthritis, Cataracts Laterality Cases: Left: Arthroscopy Hip Other Surgeries: Yes: Cardiac Catheterization, Coronary Stent. No: Pacemaker Amputation: No - *Social History Last grade of school completed: Some college Smoking Status: Former smoker Tobacco Type: cigarettes Alcohol Intake: never Substance Use Type: denies use *Occupational Status:: employed Housing: house Household Members: spouse *Travel in the last 8 weeks: None Family Hx:: Cancer, Coronary Artery Disease, Diabetes Review of Systems - Review of Systems Review of systems:: pertinent systems reviewed and negative unless documented below Meds Home Medications Medication Instructions Recorded Confirmed Type Duloxetine HCl 120 mg PO DAILY 10/15/19 07/14/20 History Magnesium 250 mg PO DAILY 10/15/19 07/14/20 History Melatonin 10 mg PO HS 10/15/19 07/14/20 History Nortriptyline HCl 50 mg PO HS 10/15/19 07/14/20 History Oxycodone HCl 5 - 10 mg PO Q6HP PRN 10/15/19 07/14/20 History Tizanidine HCl 4 mg PO Q8HP PRN 10/15/19 07/14/20 History Aspirin [Aspirin 81mg EC Tab] 81 mg PO DAILY 10/16/19 07/14/20 History Rosuvastatin Calcium [Crestor 20 20 mg PO HS 10/16/19 07/14/20 History mg Tablets] nitroglycerin 0.4 mg sublingual 0.4 mg SUBLINGUAL Q5M PRN #25 tab 10/16/19 07/14/20 Rx tablet Amlodipine Besylate [Norvasc 5mg 5 mg PO DAILY 07/14/20 07/14/20 History tablet] Clopidogrel Bisulfate [Plavix] 75 mg PO DAILY 07/14/20 07/14/20 History Diclofenac Sodium [Diclofenac Sod 1 applicatio TP QID 07/14/20 07/14/20 History 100gm Topical Gel] Empagliflozin [Jardiance] 25 mg PO DAILY 07/14/20 Rx Exenatide Microspheres [Bydureon 2 mg SQ WEEKLY 07/14/20 07/14/20 History Bcise] Losartan Potassium [Cozaar 50mg 50 mg PO DAILY 07/14/20 07/14/20 History Tablets] Oxybutynin Chloride [Oxybutynin 5 mg PO DAILY 07/14/20 07/14/20 History Chloride ER] Sitagliptin Phosphate [Januvia 100 mg PO DAILY 07/14/20 07/14/20 History 100mg tablet] bisoproloL fumarate [Bisoprolol 10 mg PO DAILY 30 Days #30 tab 07/14/20 Rx 10mg Tablet] dilTIAZem HCL [Cardizem] 30 mg PO BID 07/14/20 07/14/20 History Codeine Phosphate/Guaifenesin 5 ml PO Q6 #120 liquid 07/20/20 Rx [Guaifenesin-Codeine Syrup] Allergies Allergy/AdvReac Type Severity Reaction Status Date / Time No Known Allergies Allergy Verified 11/04/19 11:45 Exam Vital signs and Labs for Last 24 Hours: Temp Pulse Resp BP Pulse Ox 98.4 F 98 H 21 170/80 H 91 L 07/23/20 16:13 07/23/20 16:13 07/23/20 16:13 07/23/20 16:13 07/23/20 16:13 I & O
[2020-07-23 17:00] VITALS: O2SAT 95
[2020-07-23 17:08] LABS: Basophils % 0.4 % (0.1-2.0); Eosinophils % 0.4 % (0.1-12.0); Hematocrit 39.7 % (37.0-47.0); Hemoglobin 12.2 g/dL (12.2-16.2); Lymphocytes # 0.5 K/mm3 (0.7-4.5); Lymphocytes % 7.7 % (10-50); Mean Corpuscular HGB Conc 30.7 g/dL (31.8-35.4); Mean Corpuscular Hemoglobin 25.6 pg (27.0-31.2); Mean Corpuscular Volume 83.6 fl (81-99); Mean Platelet Volume 6.7 fl (7.4-10.4); Monocytes # 0.4 K/mm3 (0.1-1.0); Monocytes % 5.1 % (1.7-9.3); Neutrophils # 5.9 K/mm3 (1.8-7.8); Neutrophils % 86.4 % (37.0-80.0); Platelet Count 524 K/mm3 (142-424); Red Blood Count 4.75 M/mm3 (4.20-5.40); Red Cell Distribution Width 13.8 % (11.5-17.5); White Blood Count 6.9 K/mm3 (4.8-10.8)
[2020-07-23 17:10] VITALS: O2SAT 95
[2020-07-23 17:10] LABS: MANUAL DIFFERENTIAL MANUAL DIFFERENTIAL (MANUAL DIFF)
[2020-07-23 17:12] LABS: Chloride 96 mmol/L (98-107); Potassium 3.2 mmoL/L (3.5-5.1); Sodium 134 mmol/L (136-145)
[2020-07-23 17:15] LABS: Anion Gap 14.2 mEq/L (5-15); Blood Urea Nitrogen 13 mg/dl (7-17); Carbon Dioxide 27 mmol/L (22.0-30.0); Creatinine Clearance Estimated 89 mL/min (50-200); Estimated Glomerular Filt Rate 84 ml/min (>60); GFR (African American) 102 ML/MIN (>60); Lactic Acid 1.1 mmol/L (0.7-2.1)
[2020-07-23 17:16] LABS: Calcium 9.6 mg/dl (8.4-10.2); Glucose 287 mg/dl (74-100); Magnesium 1.7 mg/dl (1.6-2.3)
[2020-07-23 17:27] LABS: POC Glucose,Bedside 274 (70-110)
[2020-07-23 17:37] LABS: Lymphocytes % 8 % (10-50); Monocytes % 2 % (2-9); Neutrophils % 90 % (42-76); Platelet Estimate Moderate Increase; RBC Morphology Normal; Total Cells Counted 100
[2020-07-23 17:39] LABS: Coronavirus 19 IgG Antibody Positive (Negative); Coronavirus 19 IgM Antibody Negative (Negative)
[2020-07-23 17:45] LABS: Mycoplasma Pneumo IGM (Rapid) Non-Reactive (Non-Reactiv)
[2020-07-23 19:48] VITALS: BP 134/79; PULSE 108; RESP 16; TEMP 36.6; O2SAT 90
--- NOTE | 2020-07-23 20:10 | PC.NURSE ---
PATIENT ARRIVED ON FLOOR VIA WHEELCHAIR COMPLAINING OF NAUSEA. THIS RN WENT INTO ROOM AND INFORMED PATIENT'S THAT HE WOULD NOT BE ALLOWED TO STAY UNTIL HER COVID RESULTS ARE COMPLETE. PATIENT'S THAN BECAME IRATE AND STATED THAT HE HAS COVID. THIS RN STATED, THAT HE SHOULD NOT BE HERE AND AT HOME UNDER QUARANTINE. PATIENT'S THEN STATED, WELL I HAD IT ALREADY. THIS RN STATED THAT I WOULD CALL THE SURGICAL ASST TO CHECK. THIS RN SPOKE WITH STEPHANIA TELLEZ. PER ROSALINDA, PATIENT'S SPOUSE COULD NOT STAY. THIS RN INFORMED PATIENT'S SPOUSE AND HE BECAME ANGRY AND BEGAN RAISING HIS VOICE AT THIS RN, THIS RN REPEATEDLY APOLOGIZED AND STATED THAT IT IS [facility] POLICY. PATIENT'S SPOUSE CONTINUED TO BECOME ANGRY, PATIENT AMBULATED OFF FLOOR. PATIENT IS A&O X4, LUNGS ARE DIMINISHED. PATIENT STATED THE ZOFRAN AND MORPHINE HELP HER TREMENDOUSLY. PATIENT ATE ABOUT 35% OF HER DINNER AND TOLERATED WELL. PATIENT COMPLAINS OF PAIN IN HER LOWER RIBS, STATING, THEY FEEL LIKE THEY ARE BROKE. THIS RN PHONED [facility] AND SPOKE WITH ROMÁN GARCIA. THIS RN INFORMED ROMÁN THAT PATIENT STATED THAT SHE DOES NOT HAVE A LIST FOR HER HOME MEDICATIONS AND THAT SHE CAN TRY TO REMEMBER WHAT SHE TAKES. PER ROMÁN, OKAY TO EDIT WHAT SHE DOES REMEMBER AND PHARMACY WILL GET A HOME MEDICATION LIST FROM DR. OLSEN'S OFFICE IN THE AM.
[2020-07-23 20:52] LABS: POC Glucose,Bedside 318 (70-110)
--- NOTE | 2020-07-23 21:22 | HMH.PHAVTE ---
[facility] Pharmacy VTE Monitoring - Patient Demographics Admission date: 07/23/20 Report Date: 07/23/20 Time: 21:22 Allergies/Adverse Reactions: Patient Allergies No Known Allergies Allergy (Verified 11/04/19 11:45) Height: 1.73 m Weight: 100.357 kg Patient Problems: Current Active Problems Obesity (BMI 30.0-34.9) (Chronic) Tachycardia (Acute) Diabetes mellitus (Chronic) Pneumonia due to COVID-19 virus (Acute) Hypoxia (Acute) - VTE Risk Labs: VTE Related Lab Results Hgb 12.2 g/dL (12.2-16.2) 07/23/20 16:50 Hct 39.7 % (37.0-47.0) 07/23/20 16:50 Plt Count 524 K/mm3 (142-424) H D 07/23/20 16:50 BUN 13 mg/dl (7-17) 07/23/20 16:50 Creatinine 0.70 mg/dl (0.52-1.04) D 07/23/20 16:50 Estimated Creat Clear 89 mL/min (50-200) 07/23/20 16:50 Was VTE Risk Assessment Performed: Yes VTE Score: 8 VTE Risk Level: Moderate Risk Clinical Trial Participant: No - Prophylaxis VTE Prophylaxis Ordered?: Yes Types of VTE Prophylaxis: TEDS Knee High, Pharmacological Pharmacologic Type: Enoxaparin
--- NOTE | 2020-07-23 21:30 | PC.NURSE ---
RT gave pt cup for SPT. Pt agrees to try to cough up something and will call nurse if she does.
--- NOTE | 2020-07-23 23:54 | PC.NURSE ---
2100 COURTESY ROUND TRASH AND LINENS EMPTIED . NO OTHER NEEDS STATED AT THIS TIME
[2020-07-24] VITALS: BP 139/71; PULSE 94; RESP 18; TEMP 36.8; O2SAT 94
[2020-07-24 04:00] VITALS: BP 159/83; PULSE 87; RESP 20; TEMP 37.3; O2SAT 93
[2020-07-24 05:00] VITALS: BMI 33.5
[2020-07-24 06:22] LABS: POC Glucose,Bedside 235 (70-110)
--- NOTE | 2020-07-24 06:46 | HMH.ACPN2 ---
Internal Medicine - PN: Subj *Date: 07/24/20 *Time: 08:20 Interval history: Ms. Brown appears weak and ill this morning. States her night was rough with her coughing. Having some rib pain. Productive cough this morning, able to give sputum sample. Remains afebrile. Tachycardic however and hemodynamically stable. Blood sugar remaining high on sliding scale insulin. No nausea or vomiting, that has resolved with Zofran. Tolerated dinner and breakfast. Still requiring 2 L supplemental nasal cannula oxygen Exam Vital signs and Labs for Last 24 Hours: Temp Pulse Resp BP Pulse Ox 99.1 F 87 20 159/83 H 93 L 07/24/20 04:00 07/24/20 04:00 07/24/20 04:00 07/24/20 04:00 07/24/20 04:00 Laboratory Results - last 24 hr 07/23/20 16:50: WBC 6.9, RBC 4.75, Hgb 12.2, Hct 39.7, MCV 83.6, MCH 25.6 L, MCHC 30.7 L, RDW 13.8, Plt Count 524 H D, MPV 6.7 L, Neut % (Auto) 86.4 H, Lymph % (Auto) 7.7 L, [place] % (Auto) 5.1, Eos % (Auto) 0.4, Baso % (Auto) 0.4, Neut # (Auto) 5.9, Lymph # (Auto) 0.5 L, [place] # (Auto) 0.4, Eos # (Auto) 0.0, Baso # (Auto) 0.0, Total Counted 100, Neutrophils % (Manual) 90 H, Lymphocytes % (Manual) 8 L, Monocytes % (Manual) 2, Platelet Estimate Moderate increase, RBC Morphology Normal 07/23/20 16:50: Sodium 134 L, Potassium 3.2 L D, Chloride 96 L, Carbon Dioxide 27, Anion Gap 14.2, BUN 13, Creatinine 0.70 D, Estimated Creat Clear 89, Estimated GFR 84, Est GFR ( Amer) 102 D, Glucose 287 H, Calcium 9.6, Magnesium 1.7 07/23/20 16:50: Lactate 1.1 07/23/20 16:50: Mycoplasma pneumon IgM Non-reactive 07/23/20 16:50: SARS-CoV-2 IgG Ab (Rapid) Positive A, SARS-CoV-2 IgM Ab (Rapid) Negative 07/23/20 17:06: POC Glucose 274 H 07/23/20 20:32: POC Glucose 318 H* 07/23/20 20:40: Influenza Type A Ag Negative, Influenza Type B Ag Negative 07/24/20 05:34: POC Glucose 235 H I & O for Last 24 hours: Intake & Output 07/21/20 07/22/20 07/23/20 07/24/20 23:59 23:59 23:59 23:59 Intake Total 240 / 240 1378 / 1378 Output Total 700 / 700 Balance 240 / 240 678 / 678 Weight 100.357 kg Microbiology Reports for the Last 24 Hours: Microbiology 07/23/20 16:50 Nasopharyngeal Coronavirus COVID-19 PCR - Final - Constitutional mild distress, obese - *Routine HEENT Exam Head: Present: normocephalic Eye: Present: EOMI, PERRL ENT: Present: mucous membranes moist - *Routine Neck Exam Present: supple. Absent: lymphadenopathy - *Routine Respiratory Exam Present: rhonchi, crackles. Absent: wheezes - *Routine Cardiovascular Exam Present: tachycardia - *Routine Abdominal Exam Present: soft, normoactive bowel sounds. Absent: tenderness - *Routine Extremities Exam Absent: cyanosis, clubbing, edema - *Routine Skin Exam Present: warm. Absent: rash - *Routine Neurological Exam Present: alert, oriented X3 - Routine Psychiatric Exam Present: anxious Assessment and Plan (1) Acute hypoxemic respiratory failure due to COVID-19 Status: Acute Category: Medical Code(s): U07.1 - COVID-19; J96.01 - Acute respiratory failure with hypoxia (2) Hypoxia Status: Acute Category: Medical Code(s): R09.02 - Hypoxemia (3) Pneumonia due to COVID-19 virus Status: Acute Category: Medical Code(s): U07.1 - COVID-19; J12.82 - Pneumonia due to coronavirus disease 2019 (4) Tachycardia Status: Acute Category: Medical Code(s): R00.0 - Tachycardia, unspecified (5) Diabetes mellitus Status: Chronic Qualifiers: Category: Medical Code(s): E11.9 - Type 2 diabetes mellitus without complications (6) Obesity (BMI 30.0-34.9) Status: Chronic Category: Medical Code(s): E66.9 - Obesity, unspecified (7) Hypokalemia Status: Acute Category: Medical Code(s): E87.6 - Hypokalemia (8) Hyponatremia Status: Acute Category: Medical Code(s): E87.1 - Hypo-osmolality and hyponatremia - Assessment and plan all Dx Assessment and Plan for all problems:: 65-year-old fema
--- NOTE | 2020-07-24 06:54 | PC.NURSE ---
Pt c/o back and rib pain multiple times, treated per MAR with desired results. Pt is ambulatory to but becomes SOA with exertion. She remains on 2LNC. Pt educated on IS and encouraged often with best of 750.
[2020-07-24 08:00] VITALS: BP 154/72; PULSE 107; RESP 19; TEMP 36.9; O2SAT 93; O2SAT 95
[2020-07-24 10:44] VITALS: BMI 33.4
--- NOTE | 2020-07-24 11:36 | HMH.PHAINT ---
HOME MEDICATION LIST COMPLETED USING LISTS FROM CLINIC PHARMACY, DR. OLSEN'S OFFICE AND PT INTERVIEW.
[2020-07-24 12:00] VITALS: BP 141/66; PULSE 79; RESP 19; TEMP 37.1; O2SAT 96
[2020-07-24 12:03] LABS: POC Glucose,Bedside 326 (70-110)
[2020-07-24 16:00] VITALS: BP 120/68; PULSE 65; RESP 19; TEMP 36.9; O2SAT 90
--- NOTE | 2020-07-24 19:00 | PC.NURSE ---
SHE IS AOX4, ABLE TO MAKE NEEDS KNOWN TO STAFF, SHE HAS C/O PAIN ONCE THIS SHIFT AND WAS MEDICATED WITH MORPHINE PER MAR WITH GOOD EFFECTIVENESS, LINENS WERE CHANGED THIS SHIFT BUT SHE STATED SHE WOULD GET IN THE SHOWER LATER, HAS RESTED IN BRENA FOR MOST OF SHIFT, NO C/O SOB BUT IS REQUIRING 2LNC FOR O2 SUPPORT, SHE HAS AMBULATED TO THE RESTROOM T/O THE DAY AND HAS TOLERATED WELL. TOLERATING PO INTAKE WELL WITH NO N/V/D REPORTED, HER ABD IS SOFT ROUND AND NON-TENDER , VSS, WILL CONTINUE TO MONITOR.
[2020-07-24 20:00] VITALS: BP 141/78; PULSE 68; RESP 18; TEMP 36.4; O2SAT 95
[2020-07-24 21:48] LABS: POC Glucose,Bedside 397 (70-110)
[2020-07-25] VITALS: BP 121/76; PULSE 63; RESP 20; TEMP 36.6; O2SAT 98
[2020-07-25 00:58] LABS: POC Glucose,Bedside 322 (70-110)
[2020-07-25 04:00] VITALS: BP 151/79; PULSE 70; RESP 20; TEMP 36.4; O2SAT 96
[2020-07-25 05:00] VITALS: BMI 33.5
[2020-07-25 06:18] LABS: POC Glucose,Bedside 242 (70-110)
--- NOTE | 2020-07-25 07:15 | HMH.ACPN2 ---
Internal Medicine - PN: Subj *Date: 07/25/20 *Time: 08:28 Interval history: Ms. Brown had a stable oxygen requirement overnight. Remains afebrile. Using her incentive spirometer still having significant fatigue and cough. States this morning she feels like she is been run over by a truck. Has never felt this bad in her life per her report. Labs being obtained on interview, will review when they return. Denies diarrhea, nausea. Drinking well, tolerating p.o. intake. Encouraged to get out of bed and get to bedside chair. Ambulating to bathroom Exam Vital signs and Labs for Last 24 Hours: Temp Pulse Resp BP Pulse Ox 97.6 F 70 20 151/79 H 96 07/25/20 04:00 07/25/20 04:00 07/25/20 04:00 07/25/20 04:00 07/25/20 04:00 Laboratory Results - last 24 hr 07/24/20 11:52: POC Glucose 326 H* 07/24/20 17:15: POC Glucose 322 H* 07/24/20 20:42: POC Glucose 397 H* 07/25/20 06:09: POC Glucose 242 H I & O for Last 24 hours: Intake & Output 07/22/20 07/23/20 07/24/20 07/25/20 23:59 23:59 23:59 23:59 Intake Total 240 / 240 2398 / 2398 Output Total 700 / 700 Balance 240 / 240 1698 / 1698 Weight 100.357 kg 100 kg 100.244 kg Narrative: - Constitutional minimal distress, obese - *Routine HEENT Exam Head: Present: normocephalic Eye: Present: EOMI, PERRL ENT: Present: mucous membranes moist - *Routine Neck Exam Present: supple. Absent: lymphadenopathy - *Routine Respiratory Exam Present: rhonchi, crackles. Absent: wheezes - *Routine Cardiovascular Exam Present: tachycardia - *Routine Abdominal Exam Present: soft, normoactive bowel sounds. Absent: tenderness - *Routine Extremities Exam Absent: cyanosis, clubbing, edema - *Routine Skin Exam Present: warm. Absent: rash - *Routine Neurological Exam Present: alert, oriented X3 - Routine Psychiatric Exam Present: anxious Assessment and Plan (1) Acute hypoxemic respiratory failure due to COVID-19 Status: Acute Category: Medical Code(s): U07.1 - COVID-19; J96.01 - Acute respiratory failure with hypoxia (2) Hypoxia Status: Acute Category: Medical Code(s): R09.02 - Hypoxemia (3) Pneumonia due to COVID-19 virus Status: Acute Category: Medical Code(s): U07.1 - COVID-19; J12.82 - Pneumonia due to coronavirus disease 2019 (4) Tachycardia Status: Acute Category: Medical Code(s): R00.0 - Tachycardia, unspecified (5) Diabetes mellitus Status: Chronic Qualifiers: Category: Medical Code(s): E11.9 - Type 2 diabetes mellitus without complications (6) Obesity (BMI 30.0-34.9) Status: Chronic Category: Medical Code(s): E66.9 - Obesity, unspecified (7) Hypokalemia Status: Acute Category: Medical Code(s): E87.6 - Hypokalemia (8) Hyponatremia Status: Acute Category: Medical Code(s): E87.1 - Hypo-osmolality and hyponatremia - Assessment and plan all Dx Assessment and Plan for all problems:: 65-year-old female with COVID-19 who presents with acute hypoxemic respiratory failure, suspected secondary bacterial pneumonia. Continuing to require oxygen. Continue broad-spectrum antibiotics at this time, sputum culture still pending, blood cultures negative to date. Recommend aggressive pulmonary toilet. Increased basal insulin to 15 units tonight to address hyperglycemia. Continue sliding scale as needed. Scheduled oxycodone, patient takes 5 mg 3-4 times a day regularly, having significant back pain due to immobility on top of her chronic pain. Will address as needed. Patient continues to require inpatient management. Will readdress in the coming days.
--- NOTE | 2020-07-25 07:29 | PC.NURSE ---
Pt is A&Ox4. Pt has c/o rib pain x1 this shift. PRN pain meds administered per AUG. Lung sounds remain diminished t/o. No cough noted. Pt ambulated independently to and from bathroom with steady gait. No other acute change or complaints
[2020-07-25 08:00] VITALS: BP 118/64; PULSE 63; RESP 20; TEMP 36.4; O2SAT 97
[2020-07-25 08:35] LABS: Basophils % 0.4 % (0.1-2.0); Eosinophils # 0.1 K/mm3 (0.0-0.4); Eosinophils % 0.9 % (0.1-12.0); Hematocrit 40.4 % (37.0-47.0); Hemoglobin 12.9 g/dL (12.2-16.2); Lymphocytes # 0.9 K/mm3 (0.7-4.5); Lymphocytes % 12.2 % (10-50); Mean Corpuscular HGB Conc 31.9 g/dL (31.8-35.4); Mean Corpuscular Volume 81.5 fl (81-99); Mean Platelet Volume 7.4 fl (7.4-10.4); Monocytes # 0.4 K/mm3 (0.1-1.0); Monocytes % 5.4 % (1.7-9.3); Neutrophils # 5.7 K/mm3 (1.8-7.8); Neutrophils % 81.1 % (37.0-80.0); Platelet Count 655 K/mm3 (142-424); Red Blood Count 4.96 M/mm3 (4.20-5.40); Red Cell Distribution Width 14.1 % (11.5-17.5)
[2020-07-25 08:55] LABS: Alanine Aminotransferase 34 U/L (12-78); Albumin Level 3.3 g/dl (3.5-5.0); Alkaline Phosphatase 139 U/L (38-126); Anion Gap 11.5 mEq/L (5-15); Aspartate Amino Transferase 42 U/L (14-36); Bilirubin,Total 0.4 mg/dl (0.2-1.3); Blood Urea Nitrogen 19 mg/dl (7-17); Calcium 9.5 mg/dl (8.4-10.2); Carbon Dioxide 28 mmol/L (22.0-30.0); Chloride 102 mmol/L (98-107); Creatinine Clearance Estimated 89 mL/min (50-200); Estimated Glomerular Filt Rate 100 ml/min (>60); GFR (African American) 121 ML/MIN (>60); Globulin 3.3 g/dL (1.3-3.2); Glucose 340 mg/dl (74-100); Potassium 3.5 mmoL/L (3.5-5.1); Sodium 138 mmol/L (136-145); Total Protein,Serum 6.6 g/dl (6.3-8.2)
[2020-07-25 11:24] LABS: POC Glucose,Bedside 321 (70-110)
[2020-07-25 12:00] VITALS: BP 153/67; PULSE 66; RESP 17; TEMP 36.9; O2SAT 96
[2020-07-25 16:00] VITALS: BP 147/81; PULSE 67; RESP 16; TEMP 36.6; O2SAT 97
[2020-07-25 17:16] LABS: POC Glucose,Bedside 432 (70-110)
--- NOTE | 2020-07-25 19:32 | PC.NURSE ---
PT IS RESTING IN BED. PT HAS BEEN AMBULATING TO THE BATHROOM. PT STATED SHE WOULD LIKE TO TAKE A SHOWER BEFORE BEDTIME TONIGHT. PT HAS BEEN GETTING SCHEDULED PAIN MEDICATION FOR RIB DISCOMFORT. LUNG SOUNDS DIMINISHED WITH FINE CRACKLES IN THE BASES. ABDOMEN SOFT/NON TENDER WITH ACTIVE BOWEL SOUNDS. VSS. PCP WAS NOTIFIED ABOUT PT'S ELEVATED BLOOD SUGARS AND WANTED PT SWITCHED TO HIGH INTENSITY SLIDING SCALE. WILL CONTINUE TO MONITOR.
[2020-07-25 20:00] VITALS: BP 151/98; PULSE 68; RESP 19; TEMP 36.7; O2SAT 93
[2020-07-25 22:40] LABS: POC Glucose,Bedside 354 (70-110)
[2020-07-26] VITALS: BP 148/72; PULSE 58; RESP 20; TEMP 36.6; O2SAT 94
[2020-07-26 04:00] VITALS: BP 138/61; PULSE 65; RESP 19; TEMP 36.5; O2SAT 98
--- NOTE | 2020-07-26 04:42 | PC.NURSE ---
Pt is A&Ox4. Expiratory rhonchi noted scattered t/o all lung puckett. Dry, hacking cough noted. Pt has requested PRN cough syrup x1 this shift. Pt has stated favorable results concerning scheduled pain meds. VSS. No other acute changes or complaints at this time.
[2020-07-26 04:51] VITALS: BMI 33.6
[2020-07-26 06:47] LABS: POC Glucose,Bedside 207 (70-110)
--- NOTE | 2020-07-26 07:55 | HMH.ACPN2 ---
Internal Medicine - PN: Subj *Date: 07/26/20 *Time: 10:19 Interval history: Jefferson states she is feeling a little better this morning. Still having coughing spells which scare her but stable oxygen requirement. Exhausted after taking her shower, spent several hours yesterday in the bedside chair. Tolerating good p.o. intake. Interested in getting home in the next day or 2. Afebrile, hemodynamically stable. Blood sugar somewhat better this morning with increase in insulin regimen. Denies chest pain, nausea, vomiting, diarrhea. Exam Vital signs and Labs for Last 24 Hours: Temp Pulse Resp BP Pulse Ox 97.7 F 65 19 138/61 98 07/26/20 04:00 07/26/20 04:00 07/26/20 04:00 07/26/20 04:00 07/26/20 04:00 Laboratory Results - last 24 hr 07/25/20 08:24: WBC 7.0, RBC 4.96, Hgb 12.9, Hct 40.4, MCV 81.5, MCH 26.0 L, MCHC 31.9, RDW 14.1, Plt Count 655 H, MPV 7.4, Neut % (Auto) 81.1 H, Lymph % (Auto) 12.2, [place] % (Auto) 5.4, Eos % (Auto) 0.9, Baso % (Auto) 0.4, Neut # (Auto) 5.7, Lymph # (Auto) 0.9, [place] # (Auto) 0.4, Eos # (Auto) 0.1, Baso # (Auto) 0.0 07/25/20 08:24: Sodium 138, Potassium 3.5, Chloride 102, Carbon Dioxide 28, Anion Gap 11.5, BUN 19 H D, Creatinine 0.60, Estimated Creat Clear 89, Estimated GFR 100, Est GFR ( Amer) 121, Glucose 340 H, Calcium 9.5, Magnesium 2.0 D, Total Bilirubin 0.4, AST 42 H, ALT 34, Alkaline Phosphatase 139 H, Total Protein 6.6, Albumin 3.3 L, Globulin 3.3 H, Albumin/Globulin Ratio 1.0 L 07/25/20 11:04: POC Glucose 321 H* 07/25/20 16:32: POC Glucose 432 H* 07/25/20 21:17: POC Glucose 354 H* 07/26/20 06:32: POC Glucose 207 H I & O for Last 24 hours: Intake & Output 07/23/20 07/24/20 07/25/20 07/26/20 23:59 23:59 23:59 23:59 Intake Total 240 / 240 2398 / 2398 1320 / 1320 Output Total 700 / 700 Balance 240 / 240 1698 / 1698 1320 / 1320 Weight 100.357 kg 100 kg 100.244 kg 100.726 kg Microbiology Reports for the Last 24 Hours: Microbiology 07/23/20 16:50 Blood Blood Culture - Preliminary NO GROWTH AFTER 48 HOURS 07/23/20 16:50 Blood Blood Culture - Preliminary NO GROWTH AFTER 48 HOURS Narrative: - Constitutional NAD on 2L NC, obese - *Routine HEENT Exam Head: Present: normocephalic Eye: Present: EOMI, PERRL ENT: Present: mucous membranes moist - *Routine Neck Exam Present: supple. Absent: lymphadenopathy - *Routine Respiratory Exam Present: good air movement bilaterally, no rhonchi, faint bibasilar crackles in posterior lung puckett; No wheezes - *Routine Cardiovascular Exam Present: RRR, no murmur - *Routine Abdominal Exam Present: soft, normoactive bowel sounds. Absent: tenderness - *Routine Extremities Exam Absent: cyanosis, clubbing, edema - *Routine Skin Exam Present: warm. Absent: rash - *Routine Neurological Exam Present: alert, oriented X3 - Routine Psychiatric Exam Present: anxious Assessment and Plan (1) Acute hypoxemic respiratory failure due to COVID-19 Status: Acute Category: Medical Code(s): U07.1 - COVID-19; J96.01 - Acute respiratory failure with hypoxia (2) Hypoxia Status: Acute Category: Medical Code(s): R09.02 - Hypoxemia (3) Pneumonia due to COVID-19 virus Status: Acute Category: Medical Code(s): U07.1 - COVID-19; J12.82 - Pneumonia due to coronavirus disease 2019 (4) Tachycardia Status: Acute Category: Medical Code(s): R00.0 - Tachycardia, unspecified (5) Diabetes mellitus Status: Chronic Qualifiers: Category: Medical Code(s): E11.9 - Type 2 diabetes mellitus without complications (6) Obesity (BMI 30.0-34.9) Status: Chronic Category: Medical Code(s): E66.9 - Obesity, unspecified (7) Hypokalemia Status: Acute Category: Medical Code(s): E87.6 - Hypokalemia (8) Hyponatremia Status: Acute Category: Medical Code(s): E87.1 - Hypo-osmolality and hyponatremia - Assessment and p
[2020-07-26 08:00] VITALS: BP 157/71; PULSE 72; RESP 19; TEMP 36.1; O2SAT 99
[2020-07-26 11:55] LABS: POC Glucose,Bedside 323 (70-110)
[2020-07-26 12:00] VITALS: BP 170/84; PULSE 68; RESP 17; TEMP 36.9; O2SAT 97
--- NOTE | 2020-07-26 14:59 | PC.NURSE ---
PT IS RESTING IN BED. RECEIVING SCHEDULED PAIN MEDICATION FOR DISCOMFORT. PT STATES SHE DOES NOT FEEL ANY WORSE TODAY BUT DOES FEEL VERY TIRED. PT STATES SHE REALLY WANTS OXYGEN TO GO HOME WITH TOMORROW. PT AMBULATED TO THE BATHROOM AND BACK TO BED ON ROOM AIR AND HAD AN O2 SATURATION OF 95%. ROOM AIR SATURATION NEVER DROPPED ANY LOWER THAN 93% THIS SHIFT HOWEVER PT STATES SHE DOES NOT THINK SHE CAN GET BY AT HOME W/O OXYGEN B/C IT MAKES HER FEEL BETTER. LUNG SOUNDS DIMINISHED WITH FINE CRACKLES IN THE LLL. EATING AND DRINKING WELL. PT STATES SHE HAS NOT HAD A BOWEL MOVEMENT SINCE MONDAY. PT CONTINUES TO HAVE ELEVATED BLOOD SUGARS. WILL CONTINUE TO MONITOR.
--- NOTE | 2020-07-26 15:53 | HMH.ACPN ---
Internal Medicine - PN: Subj *Date: 07/26/20 *Time: 15:53 Exam Vital signs and Labs for Last 24 Hours: Temp Pulse Resp BP Pulse Ox 97.0 F L 72 19 157/71 H 99 07/26/20 08:00 07/26/20 08:00 07/26/20 08:00 07/26/20 08:00 07/26/20 08:00 Laboratory Results - last 24 hr 07/25/20 16:32: POC Glucose 432 H* 07/25/20 21:17: POC Glucose 354 H* 07/26/20 06:32: POC Glucose 207 H 07/26/20 11:38: POC Glucose 323 H* I & O for Last 24 hours: Intake & Output 07/23/20 07/24/20 07/25/20 07/26/20 23:59 23:59 23:59 23:59 Intake Total 240 / 240 2398 / 2398 1320 / 1320 360 / 360 Output Total 700 / 700 Balance 240 / 240 1698 / 1698 1320 / 1320 360 / 360 Weight 100.357 kg 100 kg 100.244 kg 100.726 kg Microbiology Reports for the Last 24 Hours: Microbiology 07/23/20 16:50 Blood Blood Culture - Preliminary NO GROWTH AFTER 48 HOURS 07/23/20 16:50 Blood Blood Culture - Preliminary NO GROWTH AFTER 48 HOURS Assessment and Plan (1) Acute hypoxemic respiratory failure due to COVID-19 Status: Acute Category: Medical Code(s): U07.1 - COVID-19; J96.01 - Acute respiratory failure with hypoxia (2) Hypoxia Status: Acute Category: Medical Code(s): R09.02 - Hypoxemia (3) Pneumonia due to COVID-19 virus Status: Acute Category: Medical Code(s): U07.1 - COVID-19; J12.82 - Pneumonia due to coronavirus disease 2019 (4) Tachycardia Status: Acute Category: Medical Code(s): R00.0 - Tachycardia, unspecified (5) Diabetes mellitus Status: Chronic Qualifiers: Category: Medical Code(s): E11.9 - Type 2 diabetes mellitus without complications (6) Obesity (BMI 30.0-34.9) Status: Chronic Category: Medical Code(s): E66.9 - Obesity, unspecified (7) Hypokalemia Status: Acute Category: Medical Code(s): E87.6 - Hypokalemia (8) Hyponatremia Status: Acute Category: Medical Code(s): E87.1 - Hypo-osmolality and hyponatremia The patient's infection will respond to the chosen ABx?: Yes Is the patient receiving the right drug, dose, and route?: Yes Could a more targeted ABx be ordered?: No (AZITH COMPLETE. ROCEPHIN CHANGED TO CEFDINIR)
[2020-07-26 16:00] VITALS: BP 143/73; PULSE 63; RESP 19; TEMP 36.4; O2SAT 100
[2020-07-26 17:00] LABS: POC Glucose,Bedside 417 (70-110)
[2020-07-26 20:00] VITALS: BP 156/72; PULSE 66; RESP 18; TEMP 36.5; O2SAT 98
[2020-07-26 22:45] LABS: POC Glucose,Bedside 371 (70-110)
[2020-07-27] VITALS: BP 145/73; PULSE 62; RESP 19; TEMP 36.4; O2SAT 99
[2020-07-27 04:00] VITALS: BP 163/85; PULSE 71; RESP 18; TEMP 36.7; O2SAT 94
[2020-07-27 05:00] VITALS: BMI 33.7
--- NOTE | 2020-07-27 06:30 | PC.NURSE ---
Pt is A&Ox4. Pt has been on and off 2 L NC this shift. Pt was 94-95% on RA and 97-98% 2L NC. Lung sounds CTA. Pt ambulates self to the bathroom w/ no difficulties. Tolerating PO intake appropriately. No other acute changes or complaints.
[2020-07-27 07:04] LABS: POC Glucose,Bedside 128 (70-110)
[2020-07-27 07:16] LABS: Basophils # 0.1 K/mm3 (0-0.2); Basophils % 0.7 % (0.1-2.0); Eosinophils # 0.1 K/mm3 (0.0-0.4); Eosinophils % 0.8 % (0.1-12.0); Hematocrit 38.8 % (37.0-47.0); Hemoglobin 12.5 g/dL (12.2-16.2); Lymphocytes # 1.8 K/mm3 (0.7-4.5); Lymphocytes % 18.1 % (10-50); Mean Corpuscular HGB Conc 32.3 g/dL (31.8-35.4); Mean Corpuscular Hemoglobin 25.9 pg (27.0-31.2); Mean Corpuscular Volume 80.2 fl (81-99); Mean Platelet Volume 6.9 fl (7.4-10.4); Monocytes # 0.4 K/mm3 (0.1-1.0); Monocytes % 4.3 % (1.7-9.3); Neutrophils # 7.5 K/mm3 (1.8-7.8); Neutrophils % 76.2 % (37.0-80.0); Platelet Count 821 K/mm3 (142-424); Red Blood Count 4.84 M/mm3 (4.20-5.40); Red Cell Distribution Width 14.2 % (11.5-17.5); White Blood Count 9.8 K/mm3 (4.8-10.8)
[2020-07-27 07:30] LABS: Anion Gap 11.3 mEq/L (5-15); Blood Urea Nitrogen 23 mg/dl (7-17); Calcium 9.2 mg/dl (8.4-10.2); Carbon Dioxide 29 mmol/L (22.0-30.0); Chloride 102 mmol/L (98-107); Creatinine Clearance Estimated 89 mL/min (50-200); Estimated Glomerular Filt Rate 84 ml/min (>60); GFR (African American) 102 ML/MIN (>60); Glucose 145 mg/dl (74-100); Magnesium 1.9 mg/dl (1.6-2.3); Potassium 3.3 mmoL/L (3.5-5.1); Sodium 139 mmol/L (136-145)
[2020-07-27 08:00] VITALS: BP 146/91; PULSE 74; RESP 24; TEMP 36.6; O2SAT 97
--- NOTE | 2020-07-27 08:19 | HMH.DCSUM ---
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 She felt well, but after the 10 day period began to feel poorly and was actually admitted overnight at the [facility] for chest pain syndrome and discharged the following day. Unfortunately, since that time she's felt worse with coughing, shortness of air, dyspnea with exertion and poor p.o. intake. She was in the emergency department on the , sent home after having some IV fluids with cough medication. Presented to my office today, found to be hypoxic with room air saturation 87%, tachycardic with heart rate greater than 100, slightly lower blood pressure than her baseline and admitted to hospital for post viral pneumonitis and dehydration and hypoxia. Hospital Course Hospital Course: Patient was admitted, found to have significant dehydration, pneumonitis and was placed on standard medications with oxygen support and fluids and improved over the next couple of days. This morning she was still depending/improving with oxygen therapy but was able to eat on her own and drink and do her own ADLs and she will be discharged home. She will be placed on Lantus insulin to help her significant hyperglycemia from dexamethasone, and I will see her in on to follow her progress. Objective Vital signs: Temp Pulse Resp BP Pulse Ox 98.0 F 71 18 163/85 H 94 L 07/27/20 04:00 07/27/20 04:00 07/27/20 04:00 07/27/20 04:00 07/27/20 04:00 Narrative: Overall appears fatigued but alert, lungs are much improved. no acute distress - *Routine HEENT Exam Head: Present: normocephalic Eye: Present: EOMI, PERRL ENT: Present: mucous membranes moist - *Routine Neck Exam Present: supple - *Routine Respiratory Exam Present: CTA bilaterally - *Routine Cardiovascular Exam Present: RRR - *Routine Abdominal Exam Present: soft, normoactive bowel sounds. Absent: tenderness - *Routine Extremities Exam Absent: cyanosis, clubbing, edema - *Routine Skin Exam Present: warm. Absent: rash - Detailed Eye Exam Eyelids: Bilateral normal inspection Results Labs on day of discharge: Labs from last 24 hours 07/27/20 07/27/20 07/26/20 06:54 06:40 22:33 Sodium 139 Potassium 3.3 L Chloride 102 Carbon Dioxide 29 Anion Gap 11.3 BUN 23 H Creatinine 0.70 Estimated Creat Clear 89 Estimated GFR 84 Est GFR ( Amer) 102 Glucose 145 H POC Glucose 128 H 371 H* Calcium 9.2 Magnesium 1.9 07/26/20 07/26/20 16:53 11:38 Sodium Potassium Chloride Carbon Dioxide Anion Gap BUN Creatinine Estimated Creat Clear Estimated GFR Est GFR ( Amer) Glucose POC Glucose 417 H* 323 H* Calcium Magnesium Preliminary micro results at discharge 07/23/20 16:50 Blood Culture - Preliminary Blood NO GROWTH AFTER 48 HOURS 07/23/20 16:50 Blood Culture - Preliminary Blood NO GROWTH AFTER 48 HOURS DS: Diagnosis - Discharge Diagnosis (1) Acute hypoxemic respiratory failure due to COVID-19 Status: Resolved (2) Hypoxia Status: Resolved (3) Pneumonia due to COVID-19 virus Status: Acute (4) Tachycardia Status: Acute (5) Diabetes mellitus Status: Chronic (6) Obesity (BMI 30.0-34.9) Status: Chronic (7) Hypokalemia Status: Resolved (8) Hyponatremia Status: Resolved Discharge Plan - Patient Discharge Instructions ACTIVITY: Continue current activity DIET: continue same diet Patient Instructions: DI for Pneumonia -- Adult - Follow up Plan Follow up with: Manolo Yang MD [Primary Care Provider] - 07/30/20 Disposition: Home, Self-Longterm Medications: Home Medications Medication Instructions Recorded Rich
--- NOTE | 2020-07-27 09:23 | SW/DCPLANNER ---
SET UP HOME 02 FOR THIS PATIENT THAT IS DISCHARGING HOME TODAY.... A PORTABLE TANK WILL BE DELIVERED TO HER ROOM PRIOR TO HER DISCHARGE....
== END 2020-07-27 11:30 | disposition home or self-care (01) | DRG 177 ==
PROVIDERS: Internal Medicine Adolescent Medicine; Admitting Provider Internal Medicine Adolescent Medicine; PCP Internal Medicine Adolescent Medicine; Visit Provider Internal Medicine Adolescent Medicine
DX: U07.1 COVID-19 (principal); J12.82 Pneumonia due to coronavirus disease 2019; J96.01 Acute respiratory failure with hypoxia; E87.1 Hypo-osmolality and hyponatremia; E11.9 Type 2 diabetes mellitus without complications; Z79.4 Long term (current) use of insulin; E86.0 Dehydration; E87.6 Hypokalemia; Z79.82 Long term (current) use of aspirin; Z79.899 Other long term (current) drug therapy
CPT/HCPCS: 36415; 71045; 80048; 80053; 82803; 82962; 83605; 83735; 84484; 85007; 85025; 86328; 86738; 87040; 87275; 87276; 93005; 96365; 96375; 99284; J0456; J2405; U0003

== ENCOUNTER 2020-08-28 08:42 | Day surgery (SDC) | payer MEDICARE, SELFPAY ==
[2020-08-28] VITALS (12 sets, daily range): BP systolic 93–157; BP diastolic 47–82; PULSE 35–67; RESP 16–20; TEMP 36.9; O2SAT 94–98; BMI 73.4
--- NOTE | 2020-08-28 07:40 | IR_ITS ---
APPROVED REPORT Patient Location: Outpatient PROCEDURES Left heart catheterization Left ventriculogram Selective coronary angiogram INDICATION Known coronary disease, History of coronary stenting, Accelerated angina pectoris, Informed consent was obtained prior to the procedure. COMPLICATIONS None Estimated Blood Loss: Less than 10 mls TECHNIQUE One percent lidocaine used to anesthetize the right anterior aspect of the wrist. The right radial artery was accessed via the Seldinger technique. A 6 [place] sheath was placed in the right radial artery. 2.5 mg of verapamil, 800 mcg of nitroglycerin, 1mg Lidocaine and 5000 U Heparin were given through the arterial sheath. The trap catheter was also used to perform left heart catheterization, left ventriculogram and selective coronary angiogram. At the end of the procedure the sheath was removed good hemostasis was achieved using Traclet band, patient was transferred to the postop holding area in stable condition. ANGIOGRAPHIC RESULTS The left main artery Normal The left anterior descending artery Has a stent in the proximal segment which is widely patent free of in-stent restenosis with excellent proximal distal transitioning. There is an additional 20% smooth mid vessel stenosis The circumflex artery Is a large caliber nondominant vessel and normal The right coronary artery Dominant with mild 10% luminal irregularities The JUAN ventriculogram reveals Normal 65% The left ventricular end-diastolic pressure 10 to 15 mmHg IMPRESSION Widely patent stent in the proximal LAD as described above Normal ejection fraction Borderline normal LVEDP PLAN 1. Continue medical management for coronary artery disease. 2. Patient symptoms almost certainly stemming from bilateral pneumonia from recent Covid infection Electronically signed by : Taiwo Rose, 08/28/2020 14:32:38
[2020-08-28 09:25] LABS: Basophils # 0.1 K/mm3 (0-0.2); Basophils % 1.4 % (0.1-2.0); Eosinophils # 0.2 K/mm3 (0.0-0.4); Eosinophils % 2.5 % (0.1-12.0); Hemoglobin 12.4 g/dL (12.2-16.2); Lymphocytes # 1.7 K/mm3 (0.7-4.5); Lymphocytes % 24.6 % (10-50); Mean Corpuscular HGB Conc 30.3 g/dL (31.8-35.4); Mean Corpuscular Hemoglobin 26.4 pg (27.0-31.2); Mean Corpuscular Volume 86.9 fl (81-99); Mean Platelet Volume 7.3 fl (7.4-10.4); Monocytes # 0.3 K/mm3 (0.1-1.0); Monocytes % 4.4 % (1.7-9.3); Neutrophils # 4.5 K/mm3 (1.8-7.8); Neutrophils % 67.1 % (37.0-80.0); Platelet Count 315 K/mm3 (142-424); Red Blood Count 4.72 M/mm3 (4.20-5.40); Red Cell Distribution Width 15.3 % (11.5-17.5); White Blood Count 6.8 K/mm3 (4.8-10.8)
[2020-08-28 09:35] LABS: Chloride 105 mmol/L (98-107); Sodium 139 mmol/L (136-145)
[2020-08-28 09:36] LABS: Potassium 4.3 mmoL/L (3.5-5.1)
[2020-08-28 09:38] LABS: Blood Urea Nitrogen 19 mg/dl (7-17); Creatinine Clearance Estimated 47 mL/min (50-200); Estimated Glomerular Filt Rate 45 ml/min (>60); GFR (African American) 55 ML/MIN (>60)
[2020-08-28 09:39] LABS: Anion Gap 10.3 mEq/L (5-15); Calcium 9.5 mg/dl (8.4-10.2); Carbon Dioxide 28 mmol/L (22.0-30.0); Glucose 193 mg/dl (74-100)
[2020-08-28 09:58] LABS: Coronavirus 19 IgG Antibody Positive (Negative); Coronavirus 19 IgM Antibody Negative (Negative)
== END 2020-08-28 13:54 | disposition home or self-care (01) ==
LOC: CATHLAB 08:45
PROVIDERS: PCP Internal Medicine Adolescent Medicine; Visit Provider Internal Medicine
DX: E11.9 Type 2 diabetes mellitus without complications (principal); I25.110 Atherosclerotic heart disease of native coronary artery with unstable angina pectoris; R07.2 Precordial pain; Z87.891 Personal history of nicotine dependence; Z79.899 Other long term (current) drug therapy; Z79.02 Long term (current) use of antithrombotics/antiplatelets; Z79.84 Long term (current) use of oral hypoglycemic drugs; Z86.16 Personal history of COVID-19; I10 Essential (primary) hypertension; R94.31 Abnormal electrocardiogram [ECG] [EKG]
CPT/HCPCS: 80048; 85025; 86328; 93458; 99152; 99153; C1725; C1769; J1644; Q9967

== ENCOUNTER → 2020-10-16 12:48 | Outpatient (CLI) | payer MEDICARE, SELFPAY ==
--- NOTE | 2020-10-16 12:53 | CT_ITS ---
PROCEDURE: CT LUMBAR SPINE WO CON CLINICAL HISTORY: LOW BACK PAIN DDD No prior COMPARISON: No exams were available for comparison TECHNIQUE: Axial images obtained with sagittal and coronal reformats. All CT scans at the facility use one or more dose reduction, viz: automated exposure control, ma/kV adjustment per patient size (including targeted exams where dose is matched to indication, i.e. head), or iterative reconstruction technique. FINDINGS: There is normal alignment. There is an epidural stimulator device present with 2 wires entering the spinal canal posteriorly at the T12-L1 region.. The wires are directed cephalad with the tip not visible on the image. T11-T12: Degenerative disc disease. T12-L1: Unremarkable. L1-L2: Unremarkable. L2-L3: Unremarkable. L3-L4: Minimal bulging disc with mild facet and ligamentum hypertrophy. L4-5: Bulging disc with facet ligamentum hypertrophy with degenerative disc disease with bilateral lateral recess and foraminal narrowing. L5-S1: Degenerative disc disease with bulging disc and facet and ligamentum hypertrophy with bilateral lateral recess narrowing and moderate bilateral foraminal narrowing with some mild impingement upon the exiting L5 nerve roots on both sides. Small amount of gas is present in the spinal canal anteriorly and could be within an extruded herniated disc. Consider MRI for further evaluation if patient is MRI compatible. Incidental note made of stones within the lower pole of the left kidney measuring up to 5 mm. IMPRESSION: 1. Multilevel lumbar spondylosis as detailed above. Please see above for detailed description at each level. 2. L4-5: Bulging disc with facet ligamentum hypertrophy with degenerative disc disease with bilateral lateral recess and foraminal narrowing. 3. L5-S1: Degenerative disc disease with bulging disc and facet and ligamentum hypertrophy with bilateral lateral recess narrowing and moderate bilateral foraminal narrowing with some mild impingement upon the exiting L5 nerve roots on both sides. Small amount of gas is present in the spinal canal anteriorly and could be within an extruded herniated disc. Consider MRI for further evaluation if patient is MRI compatible. 4. Epidural stimulator device present. 5. Left nephrolithiasis. Dictated by: Edu Randolph MD 10/17/2020 14:04 Edu Randolph MD in [facility] 10/17/2020 14:04
--- NOTE | 2020-10-16 12:54 | CT_ITS ---
PROCEDURE: CT CERVICAL SPINE WO CON CLINICAL INDICATION: CERVICALGIA Neck pain Lumbar DDD No prior COMPARISON: No exams were available for comparison TECHNIQUE: Axial images obtained with sagittal and coronal reformats. All CT scans at the facility use one or more dose reduction, viz: automated exposure control, ma/kV adjustment per patient size (including targeted exams where dose is matched to indication, i.e. head), or iterative reconstruction technique. Axial spiral CT scanning performed of the cervical spine beginning at the base of the skull and continuing to the upper T-spine. 3-D multiplanar reconstruction with 3-D manipulation of volumetric data set in image rendering was completed by the radiologist and/or technologist with the supervision of the radiologist on independent workstation. FINDINGS: There is normal alignment. There is slight reversal of the cervical lordosis which may be due to patient positioning or muscle spasm. C2-C3: Unremarkable. C3-C4: Unremarkable. C4-C5: Mild left foraminal narrowing from uncovertebral and facet hypertrophy. C5-C6: Degenerative disc disease with endplate hypertrophic changes with moderate right-sided foraminal narrowing C6-C7: Degenerative disc disease with endplate hypertrophic change and moderate bilateral foraminal narrowing with borderline canal stenosis. C7-T1: Unremarkable. T1-T2: Mild degenerative disc disease with 3 mm anterolisthesis of T1. There is a 13 mm hypodense nodule of the right thyroid gland IMPRESSION: Multilevel cervical spondylosis with reversal cervical lordosis. Please see above for detailed description at each level. Dictated by: Edu Randolph MD 10/17/2020 13:57 Edu Randolph MD in [facility] 10/17/2020 13:57
[2020-10-16 14:27] LABS: Erythrocyte Sedimentation Rate 19 mm/hr (0-30)
[2020-10-16 14:36] LABS: Chloride 106 mmol/L (98-107); Potassium 3.9 mmoL/L (3.5-5.1); Sodium 140 mmol/L (136-145)
[2020-10-16 14:39] LABS: Alanine Aminotransferase 19 U/L (12-78); Albumin Level 4.1 g/dl (3.5-5.0); Alkaline Phosphatase 94 U/L (38-126); Anion Gap 16.9 mEq/L (5-15); Aspartate Amino Transferase 20 U/L (14-36); Bilirubin,Direct 0.1 mg/dl (0.0-0.4); Bilirubin,Indirect 0.2 mg/dL (0.0-0.9); Bilirubin,Total 0.3 mg/dl (0.2-1.3); Bilirubin,Unconjugated 0.3 mg/dL (0.0-1.1); Blood Urea Nitrogen 28 mg/dl (7-17); Calcium 9.7 mg/dl (8.4-10.2); Carbon Dioxide 21 mmol/L (22.0-30.0); Estimated Glomerular Filt Rate 63 ml/min (>60); GFR (African American) 76 ML/MIN (>60); Glucose 305 mg/dl (74-100); Total Protein,Serum 6.6 g/dl (6.3-8.2)
[2020-10-16 14:52] LABS: Triiodothryronine (T3) Uptake 31 % (23.5-40.5)
[2020-10-16 14:53] LABS: Free Thyroxine Index 2.3 ug/dL (5.93-13.13); T4 (Thyroxine) 7.5 ug/dl (5.53-11.0)
[2020-10-16 15:06] LABS: Thyroid Stimulating Hormone 4.83 uIU/mL (0.465-4.68)
== END ==
PROVIDERS: PCP Internal Medicine Adolescent Medicine; Visit Provider Anesthesiology Pain Medicine
DX: M54.2 Cervicalgia (principal); M54.5 Low back pain; M51.37 Other intervertebral disc degeneration, lumbosacral region; E11.69 Type 2 diabetes mellitus with other specified complication; Z79.84 Long term (current) use of oral hypoglycemic drugs
CPT/HCPCS: 36415; 72125; 72131; 80048; 80076; 84436; 84443; 84479; 85651

== ENCOUNTER → 2020-10-21 13:10 | Outpatient (CLI) | payer MEDICARE, SELFPAY ==
[2020-10-21 13:44] LABS: Hemoglobin A1C 9.3 % (4.0-6.0)
== END ==
PROVIDERS: Visit Provider Internal Medicine Adolescent Medicine
DX: E11.9 Type 2 diabetes mellitus without complications (principal); Z79.84 Long term (current) use of oral hypoglycemic drugs
CPT/HCPCS: 36415; 83036

== ENCOUNTER → 2021-02-17 11:32 | Outpatient (CLI) | payer MEDICARE, SELFPAY ==
[2021-02-17 12:26] LABS: Chloride 103 mmol/L (98-107); Potassium 4.9 mmoL/L (3.5-5.1); Sodium 139 mmol/L (136-145)
[2021-02-17 12:28] LABS: Alanine Aminotransferase 28 U/L (12-78); Alkaline Phosphatase 135 U/L (38-126); Aspartate Amino Transferase 32 U/L (14-36); Bilirubin,Total 0.7 mg/dl (0.2-1.3); Blood Urea Nitrogen 29 mg/dl (7-17); Estimated Glomerular Filt Rate 45 ml/min (>60); GFR (African American) 55 ML/MIN (>60)
[2021-02-17 12:29] LABS: Albumin Level 4.2 g/dl (3.5-5.0); Albumin/Globulin Ratio 1.6 (1.1-1.8); Anion Gap 13.9 mEq/L (5-15); Calcium 9.5 mg/dl (8.4-10.2); Carbon Dioxide 27 mmol/L (22.0-30.0); Chol/HDL Ratio 2.8 (1-3.5); Cholesterol 156 mg/dl (140-200); Globulin 2.7 g/dL (1.3-3.2); HDL Cholesterol 56 mg/dl (40-60); Hemoglobin A1C 9.3 % (4.0-6.0); Total Protein,Serum 6.9 g/dl (6.3-8.2); Triglycerides 242 mg/dl (30-150); VLDL Cholesterol 48 mg/dL (0-40)
[2021-02-17 12:32] LABS: Glucose 406 mg/dl (74-100)
[2021-02-17 12:40] LABS: Direct LDL Cholesterol 64.01 mg/dL (100-129)
[2021-02-17 13:14] LABS: Basophils # 0.1 K/mm3 (0-0.2); Basophils % 1.5 % (0.1-2.0); Eosinophils # 0.2 K/mm3 (0.0-0.4); Eosinophils % 1.8 % (0.1-12.0); Hematocrit 41.9 % (37.0-47.0); Hemoglobin 13.8 g/dL (12.2-16.2); Lymphocytes # 1.9 K/mm3 (0.7-4.5); Mean Corpuscular HGB Conc 32.9 g/dL (31.8-35.4); Mean Corpuscular Hemoglobin 26.6 pg (27.0-31.2); Mean Corpuscular Volume 80.8 fl (81-99); Monocytes # 0.3 K/mm3 (0.1-1.0); Monocytes % 3.4 % (1.7-9.3); Neutrophils # 5.8 K/mm3 (1.8-7.8); Neutrophils % 70.4 % (37.0-80.0); Platelet Count 390 K/mm3 (142-424); Red Blood Count 5.19 M/mm3 (4.20-5.40); Red Cell Distribution Width 13.8 % (11.5-17.5); White Blood Count 8.2 K/mm3 (4.8-10.8)
== END ==
PROVIDERS: Visit Provider Internal Medicine Adolescent Medicine
DX: I25.10 Atherosclerotic heart disease of native coronary artery without angina pectoris (principal); E11.9 Type 2 diabetes mellitus without complications; Z79.84 Long term (current) use of oral hypoglycemic drugs
CPT/HCPCS: 36415; 80053; 80061; 83036; 85025

== ENCOUNTER → 2021-05-20 16:44 | Outpatient (CLI) | payer MEDICARE, SELFPAY | PROVIDERS: Visit Provider Internal Medicine Adolescent Medicine | DX: R30.0 Dysuria (principal) | CPT/HCPCS: 87086 ==